=== PATIENT | male | born 1955 | race Caucasian/White ===

== ENCOUNTER 2019-11-19 00:58 | Emergency (ER) | payer MEDICARE ==
[~2019-11-19] VITALS: Ht 185.4 cm; Wt 97.5 kg
[~2019-11-19 00:58] MED LIST: CLON.1 PO; CLON1; ESCI20 PO; GABA300; HYDACE5 PO; HYDMOR2 PO; HYDPAM50; QUET100 PO; QUET25; QUET25 PO; SERT50
[2019-11-19 02:59] LABS: Alanine Aminotransfer (ALT/SGP 28 U/L (12-78); Albumin, Blood 3.7 g/dL (3.4-5.0); Albumin/Globulin Ratio 0.9 (0.8-1.8); Alk Phos 115 U/L (50-136); Anion Gap 6 mmol/L (6-16); Aspartate Aminotrans (AST/SGOT 26 U/L (12-37); Bilirubin, Total 0.2 mg/dL (0.1-1.0); Blood Urea Nitrogen 12 mg/dL (8-24); CO2, Blood 28 mmol/L (21-32); Calcium, Blood 9.4 mg/dL (8.5-10.1); Chloride, Blood 106 mmol/L (98-108); Creatinine, Blood 1.09 mg/dL (0.60-1.20); Globulin, Blood 4.2 g/dL (2.2-4.0); Glomerular Filtration Rate >60 (60-); Glucose, Blood 95 mg/dL (70-99); Potassium, Blood 4.1 mmol/L (3.5-5.5); Sodium, Blood 140 mmol/L (136-145); Total Protein, Blood 7.9 g/dL (6.4-8.2)
[2019-11-19 03:29] LABS: BASOPHILS ABSOLUTE AUTO 0.06 K/mm3 (0.00-0.23); BASOPHILS PERCENT AUTO 1 % (0-2); EOSINOPHILS ABSOLUTE AUTO 0.37 K/mm3 (0.00-0.68); EOSINOPHILS PERCENT AUTO 3 % (0-6); Hemoglobin 12.7 g/dL (13.5-17.5); IMMATURE GRAN ABSOLUTE AUTO 0.03 K/mm3 (0.00-0.10); IMMATURE GRAN PERCENT AUTO 0 % (0-1); LYMPHOCYTES PERCENT AUTO 26 % (21-46); MONOCYTES ABSOLUTE AUTO 1.12 K/mm3 (0.16-1.47); MONOCYTES PERCENT AUTO 10 % (4-13); Mean Corpuscular HGB 30.9 pg (26.0-34.0); Mean Corpuscular HGB Conc 32.6 g/dL (31.5-36.5); Mean Corpuscular Volume 95 fL (80-100); Mean Platelet Volume 9.8 fL (9.1-12.4); NEUTROPHILS ABSOLUTE AUTO 7.02 K/mm3 (1.96-9.15); NEUTROPHILS PERCENT AUTO 60 % (41-73); Platelet Count 243 K/mm3 (150-400); RDW Coefficient Variation 12.1 % (11.7-14.2); Red Blood Cell Count 4.11 M/mm3 (4.30-5.90)
[2019-11-19 03:49] LABS: Troponin I <0.015 ng/mL (0.000-0.040)
== END 2019-11-19 05:02 | disposition home or self-care (01) ==
LOC: ER 00:58
PROVIDERS: Emergency Medicine
DX: R10.11 Right upper quadrant pain (principal); Z88.8 Allergy status to other drugs, medicaments and biological substances; Z79.899 Other long term (current) drug therapy; Z87.891 Personal history of nicotine dependence
CPT/HCPCS: 80053; 83690; 83735; 84484; 85025; 93005; 93010; 99284-25

== ENCOUNTER 2019-12-06 23:34 | Inpatient (IN) | payer MEDICARE, OTHER ==
[~2019-12-06] VITALS: Ht 177.8 cm; Wt 81.0 kg
[2019-12-07 01:21] LABS: BASOPHILS ABSOLUTE AUTO 0.09 K/mm3 (0.00-0.23); BASOPHILS PERCENT AUTO 1 % (0-2); EOSINOPHILS ABSOLUTE AUTO 0.23 K/mm3 (0.00-0.68); EOSINOPHILS PERCENT AUTO 1 % (0-6); Hematocrit 43.1 % (37.0-53.0); IMMATURE GRAN ABSOLUTE AUTO 0.09 K/mm3 (0.00-0.10); IMMATURE GRAN PERCENT AUTO 1 % (0-1); LYMPHOCYTES PERCENT AUTO 13 % (21-46); MONOCYTES ABSOLUTE AUTO 1.33 K/mm3 (0.16-1.47); MONOCYTES PERCENT AUTO 7 % (4-13); Mean Corpuscular HGB 30.6 pg (26.0-34.0); Mean Corpuscular HGB Conc 32.5 g/dL (31.5-36.5); Mean Corpuscular Volume 94 fL (80-100); Mean Platelet Volume 10.1 fL (9.1-12.4); NEUTROPHILS ABSOLUTE AUTO 13.94 K/mm3 (1.96-9.15); NEUTROPHILS PERCENT AUTO 78 % (41-73); Platelet Count 266 K/mm3 (150-400); RDW Coefficient Variation 12.1 % (11.7-14.2); RDW Standard Deviation 41.7 fL (35.1-46.3); Red Blood Cell Count 4.58 M/mm3 (4.30-5.90); White Blood Cell Count 17.98 K/mm3 (4.00-11.30)
[2019-12-07 01:38] LABS: Alanine Aminotransfer (ALT/SGP 42 U/L (12-78); Albumin, Blood 3.9 g/dL (3.4-5.0); Albumin/Globulin Ratio 0.9 (0.8-1.8); Alk Phos 115 U/L (50-136); Anion Gap 4 mmol/L (6-16); Aspartate Aminotrans (AST/SGOT 53 U/L (12-37); Bilirubin, Total 0.8 mg/dL (0.1-1.0); Blood Urea Nitrogen 16 mg/dL (8-24); Bun/Creatinine Ratio 15.5 (12.0-20.0); CO2, Blood 30 mmol/L (21-32); Calcium, Blood 9.3 mg/dL (8.5-10.1); Chloride, Blood 107 mmol/L (98-108); Creatinine, Blood 1.03 mg/dL (0.60-1.20); Globulin, Blood 4.5 g/dL (2.2-4.0); Glomerular Filtration Rate >60 (60-); Glucose, Blood 122 mg/dL (70-99); Potassium, Blood 3.7 mmol/L (3.5-5.5); Sodium, Blood 141 mmol/L (136-145); Total Protein, Blood 8.4 g/dL (6.4-8.2)
[2019-12-07] MEDS ORDERED: Norco 5-325 Ta1 EACH PO (03:13)
[2019-12-07] MEDS ORDERED: ONDA4ODT MM (03:13)
[2019-12-07 06:20] LABS: CHOL/HDL RATIO 3.7; Cholesterol 175 mg/dL (50-200); HDL Cholesterol 47 mg/dL (>39); LDL/HDL RATIO 2.5; Low Density Lipoprotein Chol 118 mg/dL (0-110); Triglycerides 48 mg/dL (30-160); Very Low Density Lipoprot Chol 10 mg/dL (6-32)
[2019-12-07] MEDS ORDERED: TRAZ100 PO (13:05)
[2019-12-07] MEDS ORDERED: Ventolin/Prove6.7 GM INH (13:06)
--- NOTE | 2019-12-07 14:23 | NUR ---
DR MCGEE HERE TO SEE PT.
[2019-12-07 16:24] LABS: Source, Urine Clean Catch
[2019-12-07 16:28] LABS: Appearance, Urine Clear (Clear); Bilirubin, Urine Neg (Neg); Blood, Urine 3+ (Neg); Color, Urine Yellow (P-Yellow); Glucose Qualitative, Urine Neg (Neg); Ketones, Urine Neg (Neg); Leukocyte Esterase, Urine Neg (Neg); Nitrite, Urine Neg (Neg); Protein, Urine 1+ (Neg); Urobilinogen, Urine NORM (Normal)
[2019-12-07 16:58] LABS: Bacteria Mod /hpf; Mucus Light (0-Heavy); Squamous Epithelial Cells Rare /hpf (Few); White Blood Cells, Urine 0-2 /hpf (0-5)
--- NOTE | 2019-12-07 18:57 | NUR ---
SHIFT SUMMARY PT NEW ADMIT TODAY. PT BEEN MED PRN FOR PAIN. PT VOIDED, URINE SENT. PT BEEN NPO. PT BEEN RESTING QUIETLY MOST OF DAY SINCE GETTING TO FLOOR.
[2019-12-08 04:51] LABS: Hematocrit 38.4 % (37.0-53.0); Hemoglobin 12.2 g/dL (13.5-17.5); Mean Corpuscular HGB 30.6 pg (26.0-34.0); Mean Corpuscular HGB Conc 31.8 g/dL (31.5-36.5); Mean Corpuscular Volume 96 fL (80-100); Mean Platelet Volume 10.2 fL (9.1-12.4); Platelet Count 221 K/mm3 (150-400); RDW Coefficient Variation 12.2 % (11.7-14.2); RDW Standard Deviation 43.7 fL (35.1-46.3); Red Blood Cell Count 3.99 M/mm3 (4.30-5.90); White Blood Cell Count 16.08 K/mm3 (4.00-11.30)
--- NOTE | 2019-12-08 04:51 | NUR ---
SHIFT SUMMARY PT IS A/O X4. HE HAS BEEN RESTING MOST OF THE SHIFT, USING URINAL TO VOID. PT HAS HAD PAIN AND NAUSEA AND MEDICATED PER ORDERS. HAS BEEN NPO PER ORDERS; PROVIDED MOUTH SWABS FOR COMFORT. PT REPOSITIONS SELF IN BED. ASSISTED WITH ADL'S PRN.
[2019-12-08 05:43] LABS: Alanine Aminotransfer (ALT/SGP 26 U/L (12-78); Albumin, Blood 2.7 g/dL (3.4-5.0); Albumin/Globulin Ratio 0.8 (0.8-1.8); Alk Phos 78 U/L (50-136); Anion Gap 4 mmol/L (6-16); Aspartate Aminotrans (AST/SGOT 27 U/L (12-37); Bilirubin, Total 0.8 mg/dL (0.1-1.0); Blood Urea Nitrogen 16 mg/dL (8-24); Bun/Creatinine Ratio 17.7 (12.0-20.0); CO2, Blood 26 mmol/L (21-32); Calcium, Blood 8.3 mg/dL (8.5-10.1); Chloride, Blood 109 mmol/L (98-108); Creatinine, Blood 0.91 mg/dL (0.60-1.20); Globulin, Blood 3.5 g/dL (2.2-4.0); Glomerular Filtration Rate >60 (60-); Glucose, Blood 95 mg/dL (70-99); Potassium, Blood 3.8 mmol/L (3.5-5.5); Sodium, Blood 139 mmol/L (136-145); Total Protein, Blood 6.2 g/dL (6.4-8.2)
--- NOTE | 2019-12-08 09:22 | NUR ---
DR MCGEE HERE TO SEE PT.
--- NOTE | 2019-12-08 11:17 | NUR ---
DISCUSSED PT'S STATUS WITH DR DIANA, REPORTS MAY GIVE LOVENOX.
--- NOTE | 2019-12-08 16:52 | NUR ---
SHIFT SUMMARY PT SEEN BY DR MCGEE AND DR DIANA TODAY. PT ADVANCED TO C.L. DIET BY DR DIANA. PT BEEN ASSISTED WITH ADL'S PRN. PT VOIDING. PT BEEN MED PRN FOR PAIN, EDUCATED ON DIET, ACTIVITY. REPORTS USING I/S.
[2019-12-08] MEDS ORDERED: QUET100 PO (17:14)
[2019-12-09 05:00] LABS: BASOPHILS ABSOLUTE AUTO 0.03 K/mm3 (0.00-0.23); BASOPHILS PERCENT AUTO 0 % (0-2); EOSINOPHILS ABSOLUTE AUTO 0.26 K/mm3 (0.00-0.68); EOSINOPHILS PERCENT AUTO 2 % (0-6); Hematocrit 33.8 % (37.0-53.0); Hemoglobin 10.9 g/dL (13.5-17.5); IMMATURE GRAN ABSOLUTE AUTO 0.09 K/mm3 (0.00-0.10); IMMATURE GRAN PERCENT AUTO 1 % (0-1); LYMPHOCYTES ABSOLUTE AUTO 2.67 K/mm3 (0.84-5.20); LYMPHOCYTES PERCENT AUTO 16 % (21-46); MONOCYTES ABSOLUTE AUTO 1.53 K/mm3 (0.16-1.47); MONOCYTES PERCENT AUTO 9 % (4-13); Mean Corpuscular HGB Conc 32.2 g/dL (31.5-36.5); Mean Corpuscular Volume 96 fL (80-100); Mean Platelet Volume 10.1 fL (9.1-12.4); NEUTROPHILS ABSOLUTE AUTO 12.22 K/mm3 (1.96-9.15); NEUTROPHILS PERCENT AUTO 73 % (41-73); Platelet Count 185 K/mm3 (150-400); RDW Coefficient Variation 12.1 % (11.7-14.2); RDW Standard Deviation 42.4 fL (35.1-46.3); Red Blood Cell Count 3.52 M/mm3 (4.30-5.90)
--- NOTE | 2019-12-09 05:04 | NUR ---
SHIFT SUMMARY ACUTE PANCREATITIS. AA0X4, VSS. PT TOLERATING PO. REPORTS SOME PAIN WHEN DRINKING AND STOPS DRINKING. MEDICATED FOR PAIN PER EMAR, PT REPORTS PAIN OF 4/5 OF 10 T/O SHIFT. REPORTS TOLERABLE AFTER RECEIVING PAIN MEDICATIONS. PT VOIDING IN URINAL. PT NOT UP OUT OF BED R/T TO PAIN. TOLERATING CLEARS WELL.
[2019-12-09 05:19] LABS: Alanine Aminotransfer (ALT/SGP 17 U/L (12-78); Albumin, Blood 2.4 g/dL (3.4-5.0); Albumin/Globulin Ratio 0.7 (0.8-1.8); Alk Phos 67 U/L (50-136); Anion Gap 4 mmol/L (6-16); Aspartate Aminotrans (AST/SGOT 21 U/L (12-37); Bilirubin, Total 0.8 mg/dL (0.1-1.0); Blood Urea Nitrogen 17 mg/dL (8-24); Bun/Creatinine Ratio 18.9 (12.0-20.0); CO2, Blood 27 mmol/L (21-32); Calcium, Blood 7.8 mg/dL (8.5-10.1); Chloride, Blood 109 mmol/L (98-108); Globulin, Blood 3.4 g/dL (2.2-4.0); Glomerular Filtration Rate >60 (60-); Glucose, Blood 96 mg/dL (70-99); Magnesium, Blood 1.9 mg/dL (1.6-2.4); Potassium, Blood 3.9 mmol/L (3.5-5.5); Sodium, Blood 140 mmol/L (136-145); Total Protein, Blood 5.8 g/dL (6.4-8.2)
--- NOTE | 2019-12-09 13:16 | NUR ---
FROM OR TO PACU RECIEVED PATIENT AND REPORT FROM EZEQUIEL EVANS AND DR. RAMIREZ. DRESSINGS CLI MARY DRAIN ON RIGHT MID LINE UMBILICUS DRESSING
--- NOTE | 2019-12-09 13:47 | NUR ---
PLACED ON OXIMIZER 10 LITERS SAT IN 88-92%
--- NOTE | 2019-12-09 14:33 | NUR ---
PT RETURNED FROM PACU, STAND TRANSFER TO BED, A&OX4, VSS, 10L OXIMIZER 93%, DENIES PAIN, DENIES N&V, KIMBERLY ICE CHIPS.
--- NOTE | 2019-12-09 17:13 | NUR ---
SHIFT SUMMARY PT A&OX4, VSS, 10L OXIMIZER >93%, TCDB & I.S. EDU & ENC, PT DEMONSTRATED. S/P LAP ANABELA 3 STERI STRIPS AND 1 MARY DRAIN SITE W/330 MLS OUT. PT COUGHING/SPLINTING. KIMBERLY PO, DENIES N&V. PAIN TREATED WITH 1 PERC. VOIDING WELL; AMBULATING TO BRP W/SBA, USING URINAL IN BED; LASIX GIVEN. WILL REPORT TO ONCOMING NOC RN.
--- NOTE | 2019-12-10 04:50 | NUR ---
SHIFT SUMMARY POD 1 LAP ANABELA. AA0X4, VSS. PT REPORTS PAIN IS MORE TOLERABLE TODAY. MEDICATED PER EMAR WITH PO PAIN MEDS. PT REPORTS BEING ABLE TO SLEEP. PT TOLERATING FLUIDS WELL. DENIES NAUSEA. MARY DRAIN STILL HAVING LARGE AMOUNT OF OUTPUT, EMPTIED PRN. RED LIQUID DRAINAGE. PT VOIDING IN URINAL. TITRATED PT 02 DOWNS TO 7L VIA OXYMIZER, WILL CONTINUE TO WEAN PT TOLERATES.
[2019-12-10 05:35] LABS: BASOPHILS ABSOLUTE AUTO 0.02 K/mm3 (0.00-0.23); BASOPHILS PERCENT AUTO 0 % (0-2); EOSINOPHILS PERCENT AUTO 0 % (0-6); Hematocrit 31.9 % (37.0-53.0); Hemoglobin 10.4 g/dL (13.5-17.5); IMMATURE GRAN ABSOLUTE AUTO 0.09 K/mm3 (0.00-0.10); IMMATURE GRAN PERCENT AUTO 1 % (0-1); LYMPHOCYTES ABSOLUTE AUTO 1.42 K/mm3 (0.84-5.20); LYMPHOCYTES PERCENT AUTO 9 % (21-46); MONOCYTES ABSOLUTE AUTO 1.06 K/mm3 (0.16-1.47); MONOCYTES PERCENT AUTO 7 % (4-13); Mean Corpuscular HGB 30.7 pg (26.0-34.0); Mean Corpuscular HGB Conc 32.6 g/dL (31.5-36.5); Mean Corpuscular Volume 94 fL (80-100); Mean Platelet Volume 10.3 fL (9.1-12.4); NEUTROPHILS ABSOLUTE AUTO 13.14 K/mm3 (1.96-9.15); NEUTROPHILS PERCENT AUTO 84 % (41-73); Platelet Count 211 K/mm3 (150-400); RDW Standard Deviation 41.4 fL (35.1-46.3); Red Blood Cell Count 3.39 M/mm3 (4.30-5.90); White Blood Cell Count 15.73 K/mm3 (4.00-11.30)
[2019-12-10 05:58] LABS: Alanine Aminotransfer (ALT/SGP 33 U/L (12-78); Albumin, Blood 2.3 g/dL (3.4-5.0); Albumin/Globulin Ratio 0.6 (0.8-1.8); Alk Phos 73 U/L (50-136); Anion Gap 4 mmol/L (6-16); Aspartate Aminotrans (AST/SGOT 33 U/L (12-37); Bilirubin, Total 0.4 mg/dL (0.1-1.0); Blood Urea Nitrogen 15 mg/dL (8-24); Bun/Creatinine Ratio 16.7 (12.0-20.0); CO2, Blood 29 mmol/L (21-32); Calcium, Blood 8.1 mg/dL (8.5-10.1); Chloride, Blood 106 mmol/L (98-108); Globulin, Blood 3.7 g/dL (2.2-4.0); Glomerular Filtration Rate >60 (60-); Glucose, Blood 134 mg/dL (70-99); Potassium, Blood 3.9 mmol/L (3.5-5.5); Sodium, Blood 139 mmol/L (136-145)
--- NOTE | 2019-12-10 18:20 | NUR ---
TELEPHONE CALL TO HOSPITALIST R/T PT COUGHING UP SPUTUM AND BRIGHT RED BLOOD; SEVERAL INCIDENTS, NOT A LARGE AMOUNT OF BLOOD. NO NEW ORDERS.
--- NOTE | 2019-12-10 19:55 | NUR ---
SHIFT SUMMARY PT A&OX4, 6L OXIMIZER >91%, DECLINED PAIN MEDICATION. KIMBERLY PO, DENIES N&V. AMB W/FWW & SBA TO BRP AND HALLWAY. VOIDING WELL. COUGHING UP SMALL AMT OF RED BLOOD/HOSP CALLED/NO NEW ORDERS RECEIVED. REPORT GIVEN TO NAT FUENTES.
--- NOTE | 2019-12-10 20:43 | NUR ---
SPOKE TO HOSPITALIST [place] REGARDING PT'S SATURATION LEVELS. 10L VIA OXYMIZER SATS REMAIN 88-90%. WHEN PT GET ANXIOUS OR COUGHS HIS SATS DROP TO THE HIGH 70'S / LOW 80'S. PT IS LAYING DOWN IN BED THIS RN PERFORMING FREQUENT CHECKS TO MONITOR OXYGEN LEVELS AND LOC. NEW ORDERS RECEIVING FOR CONTINOUS PULSE OX AND A CHEST X-RAY. PLAN TO CALL HOSPITALIST BACK ONCE X RAY IS PERFORMED. WILL MONITOR PT FOR SATURATION LEVELS, LOC CHANGES, AND ANXIETY/PAIN.
--- NOTE | 2019-12-10 21:02 | NUR ---
CHEST X-RAY TO ROOM, SPOKE WITH HOSPITALIST [place] AND INFORMED HER THAT X-RAY HAD BEEN PERFORMED PER HER REQUEST.
[2019-12-10 22:10] LABS: International Normalized Ratio 1.04; Prothrombin Time Results 11.1 Sec (9.7-11.5)
--- NOTE | 2019-12-10 22:57 | NUR ---
ATIVAN GIVEN. PT BEING TAKEN DOWN TO CT. PT STILL ANXIOUS. EDUCATED PT ON BREATHING.
--- NOTE | 2019-12-10 23:36 | NUR ---
PT BACK FRM CT. TOLERATED WELL. PT REPORTS ATIVAN WAS EFFECTIVE. PT SATS AT 91% WITH 10L VIA OXYMIZER. CONT PULSE OX IN PLACE. PT RESTING IN BED. CALL LIGHT IN REACH. ABX INFUSING.
--- NOTE | 2019-12-11 00:07 | NUR ---
SPOKE WITH HOSPITALIST [place] ABOUT CT RESULTS. PLAN TO CONTINUE WITH ORDERS ABX AND MAINTAIN CURRENT OXYGEN SATURATION LEVELS. PT RESTING IN BED. CALL LIGHT IN REACH.
--- NOTE | 2019-12-11 03:41 | NUR ---
SPOKE WITH HOSPITALIST R/T PATIENTS VITALS AND CONTINUED DIFFICULT BREATHING. ORDERS GIVEN FOR RT TREAT AND EVAL. ORDERS GIVEN FOR LACTIC ACID LABS TO BE RUN WITH MORNING LABS. PT IN BED REPORTING SOME INCREASED DIFFICULTY BREATHING SATS BETWEEN 88-90% HEAD OF BED ELEVATED TO HELP WITH RESPIRATIONS.
[2019-12-11 04:16] LABS: BASOPHILS ABSOLUTE AUTO 0.05 K/mm3 (0.00-0.23); BASOPHILS PERCENT AUTO 0 % (0-2); EOSINOPHILS ABSOLUTE AUTO 0.58 K/mm3 (0.00-0.68); EOSINOPHILS PERCENT AUTO 4 % (0-6); Hematocrit 35.9 % (37.0-53.0); Hemoglobin 11.8 g/dL (13.5-17.5); IMMATURE GRAN ABSOLUTE AUTO 0.07 K/mm3 (0.00-0.10); IMMATURE GRAN PERCENT AUTO 0 % (0-1); LYMPHOCYTES ABSOLUTE AUTO 3.02 K/mm3 (0.84-5.20); LYMPHOCYTES PERCENT AUTO 19 % (21-46); MONOCYTES ABSOLUTE AUTO 1.35 K/mm3 (0.16-1.47); MONOCYTES PERCENT AUTO 8 % (4-13); Mean Corpuscular HGB Conc 32.9 g/dL (31.5-36.5); Mean Corpuscular Volume 94 fL (80-100); Mean Platelet Volume 10.2 fL (9.1-12.4); NEUTROPHILS ABSOLUTE AUTO 11.09 K/mm3 (1.96-9.15); NEUTROPHILS PERCENT AUTO 69 % (41-73); Platelet Count 219 K/mm3 (150-400); RDW Coefficient Variation 11.9 % (11.7-14.2); RDW Standard Deviation 41.1 fL (35.1-46.3); Red Blood Cell Count 3.81 M/mm3 (4.30-5.90); White Blood Cell Count 16.16 K/mm3 (4.00-11.30)
[2019-12-11 04:36] LABS: Albumin, Blood 2.4 g/dL (3.4-5.0); Anion Gap 5 mmol/L (6-16); Blood Urea Nitrogen 14 mg/dL (8-24); Bun/Creatinine Ratio 15.3 (12.0-20.0); CO2, Blood 28 mmol/L (21-32); Chloride, Blood 107 mmol/L (98-108); Creatinine, Blood 0.92 mg/dL (0.60-1.20); Glomerular Filtration Rate >60 (60-); Glucose, Blood 93 mg/dL (70-99); Phosphorus, Blood 1.7 mg/dL (2.5-4.9); Potassium, Blood 3.4 mmol/L (3.5-5.5); Sodium, Blood 140 mmol/L (136-145)
--- NOTE | 2019-12-11 05:52 | NUR ---
SHIFT SUMMARY POD 2 LAP ANABELA. MARY DRAINING RED LIQUID. PT REPORTS PAIN LOCALIZED AROUND DRAIN SITE. PAIN WHEN BREATHING DEEPLY. PT DESATTING FREQUENTLY DURING SHIFT. CT SCAN AND CHEST X RAY SHOWED PNEUMONIA. PT STARTED ON ABX TO TREAT. RT EVAL TO SEE PT. SATS SHOULD REMAIN ABOVE 88%, PT HAS REMAINED ABOVE 88% ON 7L VIA OXYMIZER. PT DESATS WITH EXERTION, INCLUDING REPOSITIONING IN BED. PT TAKES APPROX 30 SECONDS TO RECOVER. MEDICATED FOR PAIN PER EMAR. TOLERATING PO PERCOCET WELL. PT VOIDING DURING SHIFT. CALLS APPROPRIATLY.
--- NOTE | 2019-12-11 09:50 | NUR ---
NOTE PT AWAKE AND ALERT. PT COMPLAINT OF FEELING MISERABLE. TALKED ABOUT RESONABL PAIN GOALS. REVIEWED PAIN MEDICATIONS WITH PT. TALKED ABOUT HIS "HALLUCINATIONS" WITH PERCOCET. TALKED ABOUT OTHER ORAL PAIN MEDICATIONS. PT REFUSED TO CHANGE AT THIS TIME. ENCOURAGED ABD. SPLINTING WITH PILLOW AND USE OF FLUTTER VALVE. ABD. LARGE ROUND, FIRM. PT DENIES FLATUS AND FEELING BLOATED. MARY INTACT AND DRAINING SEROSANGENIOUS FLUID. PT HAS A PRODUCTIVE COUGH OF BRIGHT RED SPUTUM. SMALL IN QUANTITY. CONSULT FOR DR ABRAMS CALLED TO ANSWERING SERVICE. ASHLYN TAVERAS.
--- NOTE | 2019-12-11 14:53 | NUR ---
NOTE PT AWAKE ALERT. NEEDS ENCOURAGEMENT TO DO FOR HIMSELF. HE IS CAPABILE OF LIFTING HIS GLASS OF WATER BUT HE DOESN'T WANT TO. PT ABLE TO TURN HIMSELF. FOUND HIM SLEEPING LAYING ON HIS LEFT SIDE SAT 96% ON 8L OXIMYZER. MEDICATED WITH PERCOCET X2 FOR ABD PAIN. PT HAS DENIED "HALLUCINATIONS" SO FAR TODAY. PT HAS STATED THAT HE HAS PASSED FLATUS X2. NPO EXCEPT SIPS AND CHIPS. MARY DRAINING SEROSANGENIOUS FLUID. ABD STILL LARGE, ROUND AND FIRM. ENCOURAGED HIM TO MOVE. HE REFUSED SCD THIS MORNING. "THEY'RE HOT." LUNGS-CONTINUE TO COUGH UP BRIGHT RED SPUTUM. R/T CARE CAME TO GIVE HIM A BREATHING TREATMENT. HE WOULDN'T DEEP BREATH FOR HER. HE REFUSED THE FLUTTER VALVE. HE'S HOT THEN HE'S COLD. PT HAD A VISITOR THIS AFTERNOON. PT MENTOR. TOMORROW IS THE ANNIVERSARY OF HIS SON COMITTING SUICIDE. HE TALKS SOME ABOUT HIM. CONTINUE POT.
--- NOTE | 2019-12-11 18:29 | NUR ---
PT AWAKE AND ALERT. CONTINUES TO COUGH UP BRIGHT RED SPUTUM. DR ABRAMS HAS NOT COME TO SEE HIM. VSS. OXYGEN STABLE. FREQUENT REQUESTS FOR PAIN MEDICATIONS. PT HAS BEEN MORE RECEPTIVE TO REMINDERS TO MOVE AND TURN HIMSELF. HE STILL WON'T USE THE FLUTTER VALVE. CONTINUE POT.
[2019-12-12 05:31] LABS: BASOPHILS ABSOLUTE AUTO 0.05 K/mm3 (0.00-0.23); BASOPHILS PERCENT AUTO 0 % (0-2); EOSINOPHILS PERCENT AUTO 4 % (0-6); Hematocrit 32.4 % (37.0-53.0); Hemoglobin 10.7 g/dL (13.5-17.5); IMMATURE GRAN ABSOLUTE AUTO 0.12 K/mm3 (0.00-0.10); IMMATURE GRAN PERCENT AUTO 1 % (0-1); LYMPHOCYTES ABSOLUTE AUTO 3.51 K/mm3 (0.84-5.20); LYMPHOCYTES PERCENT AUTO 19 % (21-46); MONOCYTES ABSOLUTE AUTO 1.88 K/mm3 (0.16-1.47); MONOCYTES PERCENT AUTO 10 % (4-13); Mean Corpuscular Volume 94 fL (80-100); Mean Platelet Volume 10.2 fL (9.1-12.4); NEUTROPHILS ABSOLUTE AUTO 12.46 K/mm3 (1.96-9.15); NEUTROPHILS PERCENT AUTO 66 % (41-73); Platelet Count 259 K/mm3 (150-400); RDW Coefficient Variation 12.2 % (11.7-14.2); RDW Standard Deviation 42.4 fL (35.1-46.3); Red Blood Cell Count 3.45 M/mm3 (4.30-5.90); White Blood Cell Count 18.82 K/mm3 (4.00-11.30)
[2019-12-12 06:00] LABS: Albumin, Blood 2.3 g/dL (3.4-5.0); Anion Gap 5 mmol/L (6-16); Blood Urea Nitrogen 11 mg/dL (8-24); Bun/Creatinine Ratio 13.2 (12.0-20.0); CO2, Blood 29 mmol/L (21-32); Calcium, Blood 8.2 mg/dL (8.5-10.1); Chloride, Blood 103 mmol/L (98-108); Creatinine, Blood 0.83 mg/dL (0.60-1.20); Glomerular Filtration Rate >60 (60-); Glucose, Blood 94 mg/dL (70-99); Phosphorus, Blood 2.7 mg/dL (2.5-4.9); Potassium, Blood 3.5 mmol/L (3.5-5.5); Sodium, Blood 137 mmol/L (136-145)
--- NOTE | 2019-12-12 06:18 | NUR ---
SHIFT SUMMARY HAS RESTED WELL, GOOD INTAKE OF FLUIDS AND OUTPUT NOTED. PAIN MANAGED WITH PO PERCOCET X2 DOSES THIS SHIFT. FEVER AT START OF HIFT HAS NOT RETURNED. HAS BEEN COUGHING PRODUCTIVELY, REITERATED NEED TO T/C/DB AND USE FLUTTER VALVE. HAS BEEN COOPERATIVE AND COMPLIANT WITH INSTRUCTIONS AND TEACHING. DENIES FURTHER NEEDS OR WANTS AT THIS TIME. SAFETY MEASURES IN PLACE. WILL GIVE HAND OFF TO ONCOMING SHIFT USING SBAR DURING BEDSIDE REPORT.
--- NOTE | 2019-12-12 10:59 | NUR ---
DR DIANA HERE RECENTLY TO SEE PT, REPORTS WILL ADVANCE TO F.L. DIET. DR WHITT HERE NOW TO SEE PT.
--- NOTE | 2019-12-12 12:00 | NUR ---
DR HORNE HERE TO SEE PT.
--- NOTE | 2019-12-12 14:41 | NUR ---
PT AGREED TO ALLOW SRN TO ASSIST WITH CARE ON 12/12/19 FOR 12/13/19
--- NOTE | 2019-12-12 15:44 | NUR ---
DR HORNE HERE RECENTLY TO SEE PT.
--- NOTE | 2019-12-12 16:27 | NUR ---
RT HERE TO SEE PT, REPORTS ABLE TO DECREASE O2 NEEDS. CONT BIOX IN PLACE.
--- NOTE | 2019-12-12 16:47 | NUR ---
FAMILY HERE VISITING WITH PT.
--- NOTE | 2019-12-12 16:55 | NUR ---
SHIFT SUMMARY PT DIET ADVANCED TODAY. PT ABLE TO HAVE JELLO WITHOUT DIFFICULTY. PT BEEN ASSISTED WITH ADL'S PRN. RT BEEN TO SEE PT INES TIMES TODAY, SEE OTHER NOTE. INES NAIR TO SEE PT TODAY. FAMILY IN TO SEE PT THIS AFTERNOON/EVENING.
--- NOTE | 2019-12-12 21:54 | NUR ---
VIEW SCORE PT HAS VIEW SCORE OF 5. DENIES "FEELING ANY DIFFERENT THAN NORMAL." DENIES INCREASE IN SOB, CHEST PAIN, OR DYSPNEA. RECHECK OF TEMP IS NOW 100.7. PT C/O PAIN. MEDICATED PER EMAR, ICE PACK PLACED TO BACK OF NECK - PER PT PREF. PT A/OX4 AND IS CURRENTLY RESTING IN BED W/CALL LIGHT IN REACH. WILL CONT TO MONITOR AND RECHECK VITALS AND PAIN.
--- NOTE | 2019-12-13 05:43 | NUR ---
SHIFT SUMMARY PT MEDICATED X1 FOR ANXIETY, WHICH SEEMED TO IMPROVE HR AND RR. FREQUENT FLUTTER VALVE AND I.S. USE APPEARS TO HAVE IMPROVED WORK OF BREATHING. PT STATES HE FEELS BETTER THIS MORNING. RT IN T/O SHIFT TO MONITOR RESP/HIGH FLOW, RATE CHANGED TO 55L/MIN WITH FIO2 AT 56. PAIN MANAGED PER EMAR WITH PO MEDS. TOLERATING ADVANCED DIET, DENIES N/V. MARY IN PLACE WITH DRESSING C/D/I, DRAINING SS. PT CURRENTLY APPEARS TO BE SLEEPING IN BED WITH CALL LIGHT IN REACH. WILL CONT TO MONITOR AND GIVE REPORT TO ONCOMING RN.
[2019-12-13 07:17] LABS: BASOPHILS ABSOLUTE AUTO 0.05 K/mm3 (0.00-0.23); BASOPHILS PERCENT AUTO 0 % (0-2); EOSINOPHILS PERCENT AUTO 5 % (0-6); Hematocrit 30.4 % (37.0-53.0); Hemoglobin 10.1 g/dL (13.5-17.5); IMMATURE GRAN PERCENT AUTO 1 % (0-1); LYMPHOCYTES ABSOLUTE AUTO 2.53 K/mm3 (0.84-5.20); LYMPHOCYTES PERCENT AUTO 16 % (21-46); MONOCYTES ABSOLUTE AUTO 1.54 K/mm3 (0.16-1.47); MONOCYTES PERCENT AUTO 10 % (4-13); Mean Corpuscular HGB 31.1 pg (26.0-34.0); Mean Corpuscular HGB Conc 33.2 g/dL (31.5-36.5); Mean Corpuscular Volume 94 fL (80-100); Mean Platelet Volume 10.8 fL (9.1-12.4); NEUTROPHILS ABSOLUTE AUTO 10.85 K/mm3 (1.96-9.15); NEUTROPHILS PERCENT AUTO 68 % (41-73); Platelet Count 275 K/mm3 (150-400); RDW Coefficient Variation 12.6 % (11.7-14.2); RDW Standard Deviation 43.4 fL (35.1-46.3); Red Blood Cell Count 3.25 M/mm3 (4.30-5.90); White Blood Cell Count 15.97 K/mm3 (4.00-11.30)
[2019-12-13 07:34] LABS: Alanine Aminotransfer (ALT/SGP 45 U/L (12-78); Albumin, Blood 2.2 g/dL (3.4-5.0); Albumin/Globulin Ratio 0.6 (0.8-1.8); Alk Phos 112 U/L (50-136); Anion Gap 5 mmol/L (6-16); Aspartate Aminotrans (AST/SGOT 40 U/L (12-37); Bilirubin, Total 0.9 mg/dL (0.1-1.0); Blood Urea Nitrogen 14 mg/dL (8-24); Bun/Creatinine Ratio 14.2 (12.0-20.0); CO2, Blood 31 mmol/L (21-32); Calcium, Blood 8.3 mg/dL (8.5-10.1); Chloride, Blood 101 mmol/L (98-108); Creatinine, Blood 0.99 mg/dL (0.60-1.20); Globulin, Blood 3.9 g/dL (2.2-4.0); Glomerular Filtration Rate >60 (60-); Glucose, Blood 114 mg/dL (70-99); Magnesium, Blood 2.1 mg/dL (1.6-2.4); Phosphorus, Blood 2.3 mg/dL (2.5-4.9); Potassium, Blood 3.3 mmol/L (3.5-5.5); Sodium, Blood 137 mmol/L (136-145); Total Protein, Blood 6.1 g/dL (6.4-8.2)
--- NOTE | 2019-12-13 11:27 | NUR ---
DR HORNE BEEN TO SEE PT. DR DIANA HERE TO SEE PT.
[2019-12-13 13:09] LABS: ANTI-DSDNA ANTIBODIES 2 IU/mL (0-9); ANTI-JO-1 <0.2 AI (0.0-0.9); ANTISCLERODERMA-70 ANTIBODIES <0.2 AI (0.0-0.9); RNP ANTIBODIES <0.2 AI (0.0-0.9); SJOGREN'S ANTI-SS-A <0.2 AI (0.0-0.9); SJOGREN'S ANTI-SS-B <0.2 AI (0.0-0.9)
--- NOTE | 2019-12-13 16:47 | NUR ---
SHIFT SUMMARY PT EATING AND DRINKING, VOIDING. PT BEEN ASSISTED WITH ADL'S PRN. PT WORKED WITH THERAPY. PT BEEN REPOSITIONING SELF IN BED. BUSHRAT TO SEE PT, SEE ORDERS. PT BEEN MED ORDERED. RT BEEN ASSISTING WITH PT. PT CONT TO BE ON CONT BIOX. PT USING [employer] LIGHT APPR.
--- NOTE | 2019-12-14 03:33 | NUR ---
SHIFT SUMMARY NO ACUTE CHANGES THIS SHIFT. PT A/OX4 WITH VSS. ON HIGH FLOW 55L/MIN W/ FI02 AT 57%, SPO2 AT 93. CONT BIOX IN PLACE. MEDICATED ONCE FOR PAIN WITH PO. MARY PATENT AND DRAINING SS, ABD DRESSING 3X C/D/I. PT APPEARS TO HAVE SLEPT WELL T/O SHIFT. IVF AND ABX ADMINISTERED PER ORDERS. PT CURRENTLY RESTING IN BED WITH CALL LIGHT IN REACH. WILL CONT TO MONITOR AND GIVE REPORT TO ONCOMING RN.
[2019-12-14 05:45] LABS: BASOPHILS ABSOLUTE AUTO 0.05 K/mm3 (0.00-0.23); BASOPHILS PERCENT AUTO 0 % (0-2); EOSINOPHILS ABSOLUTE AUTO 0.96 K/mm3 (0.00-0.68); EOSINOPHILS PERCENT AUTO 6 % (0-6); Hematocrit 30.5 % (37.0-53.0); Hemoglobin 10.1 g/dL (13.5-17.5); IMMATURE GRAN ABSOLUTE AUTO 0.31 K/mm3 (0.00-0.10); IMMATURE GRAN PERCENT AUTO 2 % (0-1); LYMPHOCYTES ABSOLUTE AUTO 2.54 K/mm3 (0.84-5.20); LYMPHOCYTES PERCENT AUTO 16 % (21-46); MONOCYTES ABSOLUTE AUTO 1.52 K/mm3 (0.16-1.47); MONOCYTES PERCENT AUTO 9 % (4-13); Mean Corpuscular HGB 31.1 pg (26.0-34.0); Mean Corpuscular HGB Conc 33.1 g/dL (31.5-36.5); Mean Corpuscular Volume 94 fL (80-100); Mean Platelet Volume 10.7 fL (9.1-12.4); NEUTROPHILS ABSOLUTE AUTO 11.06 K/mm3 (1.96-9.15); NEUTROPHILS PERCENT AUTO 67 % (41-73); Platelet Count 309 K/mm3 (150-400); RDW Coefficient Variation 12.7 % (11.7-14.2); RDW Standard Deviation 43.6 fL (35.1-46.3); Red Blood Cell Count 3.25 M/mm3 (4.30-5.90); White Blood Cell Count 16.44 K/mm3 (4.00-11.30)
[2019-12-14 06:03] LABS: Alanine Aminotransfer (ALT/SGP 45 U/L (12-78); Albumin, Blood 2.3 g/dL (3.4-5.0); Albumin/Globulin Ratio 0.6 (0.8-1.8); Alk Phos 120 U/L (50-136); Anion Gap 5 mmol/L (6-16); Aspartate Aminotrans (AST/SGOT 41 U/L (12-37); Bilirubin, Total 0.9 mg/dL (0.1-1.0); Blood Urea Nitrogen 14 mg/dL (8-24); Bun/Creatinine Ratio 16.4 (12.0-20.0); CO2, Blood 31 mmol/L (21-32); Calcium, Blood 8.4 mg/dL (8.5-10.1); Chloride, Blood 100 mmol/L (98-108); Creatinine, Blood 0.85 mg/dL (0.60-1.20); Globulin, Blood 4.1 g/dL (2.2-4.0); Glomerular Filtration Rate >60 (60-); Glucose, Blood 102 mg/dL (70-99); Phosphorus, Blood 2.2 mg/dL (2.5-4.9); Potassium, Blood 3.5 mmol/L (3.5-5.5); Sodium, Blood 136 mmol/L (136-145); Total Protein, Blood 6.4 g/dL (6.4-8.2)
--- NOTE | 2019-12-14 08:20 | NUR ---
PT STATED HE HAS LG AMT SPUTUM UP WITH STREAKS OF BLOOD AND HAS COUGHING SPELLS ANY TIME HE MOVES AND BURNING IN HIS LUNGS AFTER THE COUGHING WITH SOB WITH ANY MOVEMENT IN THE BED PT STATED HIS ABD PAIN IS MIN MARY HAS CL YELLOW DRAINAGE
--- NOTE | 2019-12-14 12:39 | NUR ---
PT HAVING NAUSEA ZOFRAN GIVEN PT ALSO HAS TEMP 100,2
--- NOTE | 2019-12-14 16:49 | NUR ---
PO TYLENOL GIVEN FOR FEVER CALLED DR WHITT FOR ORDER PT PO PAIN MEDS SWITCHED TO OXY
[2019-12-14 19:09] LABS: CCP ANTIBODIES IGG/IGA 17 units (0-19)
--- NOTE | 2019-12-15 02:10 | NUR ---
SPOKE TO DR. CAPONE R/T INCREASED OXYGEN NEEDS. PT HAS MAXED OUT AIRVO WITH RT AND IS SITTING BETWEEN 88-92% AND AN INCREASE IN ANXIETY R/T SATURATIONS. RT AND THIS NURSE REQUESTED A TRANSFER TO HIGHER LEVEL OF CARE FOR CLOSER MONITORING AND POSSIBLE FOR ADVANCED RESPIRATORY EQUIPMENT NEEDS. PT STILL ORIENTED WITH RAPID BREATHS, CURRENTLY LAYING IN BED. CALLING APPROPRIATLY. AWAITING ROOM ASSIGNMENT AND WILL TRANSFER TO PCU. WILL CALL AND GIVE REPORT TO RECEIVING NURSE.
--- NOTE | 2019-12-15 02:34 | NUR ---
REPORT GIVEN TO MENDY FUENTES IN PCU. AWAITING RT TO ASSIST WITH TRANSFER WITH PATIENTS OXYGEN DEMANDS. PT CURRENTLY MAXED OUT ON AIRVO RESTING IN BED WITH HOB ELEVATED. PT TAKING SHORT SHALLOW BREATHS. SITTING AT 92% AND 115 HR. CONTINOUS PULSE OX IS ON.
--- NOTE | 2019-12-15 02:58 | NUR ---
PT TRANSFERRED FROM SURG VIA BED; PT A&O; VSS; TELE MONITOR PLACED SINUS TACH W/ HR 108 NOTED; O2 SATS >93 ON AIRVO 60L / FIO2 80%; DIM LUNG SOUNDS; TEMP OF 100 NOTED; PT STATES TEMPERATURE DIFFERENCES AND COUGHING CAUSE DESATURATION AND TAKES SIGNIFICANT TIME TO RECOVER; WARM BLANKET OFFERED PT DENIED; COLD WATER BROUGHT TO PT; DENIES OTHER NEEDS AT THIS TIME; CALL LIGHT IN REACH; BED IN LOWEST POSITION; WILL CONTINUE TO MONITOR CLOSELY
[2019-12-15 03:46] LABS: BASOPHILS ABSOLUTE AUTO 0.07 K/mm3 (0.00-0.23); BASOPHILS PERCENT AUTO 0 % (0-2); EOSINOPHILS ABSOLUTE AUTO 1.04 K/mm3 (0.00-0.68); EOSINOPHILS PERCENT AUTO 6 % (0-6); Hematocrit 33.7 % (37.0-53.0); Hemoglobin 10.8 g/dL (13.5-17.5); IMMATURE GRAN ABSOLUTE AUTO 0.36 K/mm3 (0.00-0.10); IMMATURE GRAN PERCENT AUTO 2 % (0-1); LYMPHOCYTES ABSOLUTE AUTO 2.02 K/mm3 (0.84-5.20); LYMPHOCYTES PERCENT AUTO 12 % (21-46); MONOCYTES ABSOLUTE AUTO 1.53 K/mm3 (0.16-1.47); MONOCYTES PERCENT AUTO 9 % (4-13); Mean Corpuscular HGB 30.3 pg (26.0-34.0); Mean Corpuscular Volume 95 fL (80-100); Mean Platelet Volume 10.7 fL (9.1-12.4); NEUTROPHILS ABSOLUTE AUTO 12.54 K/mm3 (1.96-9.15); NEUTROPHILS PERCENT AUTO 71 % (41-73); Platelet Count 372 K/mm3 (150-400); RDW Coefficient Variation 12.8 % (11.7-14.2); RDW Standard Deviation 44.5 fL (35.1-46.3); Red Blood Cell Count 3.56 M/mm3 (4.30-5.90); White Blood Cell Count 17.56 K/mm3 (4.00-11.30)
--- NOTE | 2019-12-15 04:05 | NUR ---
UPDATE DR.DIAZ NETTLES NOTIFIED THAT PT WAS TRANSFERED AND HAS INCREASED AIRVO DEMANDS; NEW ORDER FOR METHYLPREDNISONE X1 GIVEN; MEDICATION ADMINISTERED WELL TYLENOL FOR FEVER
[2019-12-15 04:07] LABS: Anion Gap 4 mmol/L (6-16); Blood Urea Nitrogen 16 mg/dL (8-24); Bun/Creatinine Ratio 14.4 (12.0-20.0); CO2, Blood 31 mmol/L (21-32); Calcium, Blood 8.9 mg/dL (8.5-10.1); Chloride, Blood 97 mmol/L (98-108); Creatinine, Blood 1.11 mg/dL (0.60-1.20); Glomerular Filtration Rate >60 (60-); Glucose, Blood 106 mg/dL (70-99); Potassium, Blood 3.9 mmol/L (3.5-5.5); Sodium, Blood 132 mmol/L (136-145)
--- NOTE | 2019-12-15 06:39 | NUR ---
SHIFT SUMMARY PT A&O; NEEDY; CALLS FREQUENTLY; DENIES CHEST PAIN; VSS; TEMPERATURE DOWN TO 99 W/ TYLENOL ADMINISTRATION; USES URINAL IN BED; O2 SATS >94 ON AIRVO; FIO2 60L / 80%; NO ACUTE DISTRESS NOTED; CALL LIGHT IN REACH; BED IN LOWEST POSITION; MONITOR CLOSELY UNTIL HAND OFF TO DAY SHIFT RN.
[2019-12-15 13:35] LABS: Adenovirus Not Detected (NOT DETECT); Bordetella pertussis Not Detected (NOT DETECT); Chlamydophila pneumoniae Not Detected (NOT DETECT); Coronavirus 229E Not Detected (NOT DETECT); Coronavirus HKU1 Not Detected (NOT DETECT); Coronavirus NL63 Not Detected (NOT DETECT); Coronavirus OC43 Not Detected (NOT DETECT); Human Metapneumovirus Not Detected (NOT DETECT); Human Rhinovirus/Enterovirus Not Detected (NOT DETECT); Influenza A/2009-H1 Not Detected (NOT DETECT); Influenza A/H1 Not Detected (NOT DETECT); Influenza A/H3 Not Detected (NOT DETECT); Influenza B Not Detected (NOT DETECT); Mycoplasma pneumoniae Not Detected (NOT DETECT); Parainfluenza Virus 1 Not Detected (NOT DETECT); Parainfluenza Virus 2 Not Detected (NOT DETECT); Parainfluenza Virus 3 Not Detected (NOT DETECT); Parainfluenza Virus 4 Not Detected (NOT DETECT); Respiratory Syncytial Virus Not Detected (NOT DETECT)
[2019-12-15 15:10] LABS: ANA DIRECT Negative (Negative); ANTIMYELOPEROXIDASE (MPO) ABS <9.0 U/mL (0.0-9.0); ANTIPROTEINASE 3 (PR-3) ABS <3.5 U/mL (0.0-3.5); ATYPICAL PANCA <1:20 titer (Neg:<1:20); CYTOPLASMIC (C-ANCA) <1:20 titer (Neg:<1:20); PERINUCLEAR (P-ANCA) <1:20 titer (Neg:<1:20)
[2019-12-15 15:41] LABS: Test Name COVID-19
--- NOTE | 2019-12-15 17:04 | NUR ---
SHIFT SUMMARY... PT WENT TO CT TO R/O POSSIBLE PE. SMALL PE WAS FOUND PER PULMONOLGY PROVIDER, PT WAS PLACED INTO AIRBORN ISOLATION TO R/O COVID19 AND SAMPLE WAS SENT TO THE LAB. PT WAS UPDATED ABOUT THESE NEW CHANGES. PT'S VS HAVE BEEN STABLE T/O SHIFT. PT HAS BEEN VERY ANXIOUS AND EMOTIONAL T/O THE DAY, PT IS VERY SENSITIVE TO ANY SMALL AMOUNT OF PAIN OR DISCOMFORT. PT BEGAN TO CRY AFTER NARES SWAB WAS DONE. PT WAS WILLING TO WORK WITH PT/OT AND SAT ON THE SIDE OF THE BED WITHOUT HELP. PT'S O2 SATS DROPPED WITH MINIMAL ACTIVITY BUT PT RECOVERED FARILY WELL. PT IS STILL ON THE AIRVO AT 50L AND 60%FIO2. CALL LIGHT IN REACH WILL CONTINUE TO MONITOR UNTIL REPORT IS GIVEN TO ONCOMING RN.
[2019-12-16 04:00] LABS: BASOPHILS ABSOLUTE AUTO 0.09 K/mm3 (0.00-0.23); BASOPHILS PERCENT AUTO 0 % (0-2); EOSINOPHILS ABSOLUTE AUTO 0.17 K/mm3 (0.00-0.68); EOSINOPHILS PERCENT AUTO 1 % (0-6); Hematocrit 29.8 % (37.0-53.0); Hemoglobin 9.7 g/dL (13.5-17.5); IMMATURE GRAN ABSOLUTE AUTO 0.46 K/mm3 (0.00-0.10); IMMATURE GRAN PERCENT AUTO 2 % (0-1); LYMPHOCYTES ABSOLUTE AUTO 2.48 K/mm3 (0.84-5.20); LYMPHOCYTES PERCENT AUTO 9 % (21-46); MONOCYTES ABSOLUTE AUTO 1.87 K/mm3 (0.16-1.47); MONOCYTES PERCENT AUTO 6 % (4-13); Mean Corpuscular HGB 30.5 pg (26.0-34.0); Mean Corpuscular HGB Conc 32.6 g/dL (31.5-36.5); Mean Corpuscular Volume 94 fL (80-100); Mean Platelet Volume 10.7 fL (9.1-12.4); NEUTROPHILS ABSOLUTE AUTO 24.01 K/mm3 (1.96-9.15); NEUTROPHILS PERCENT AUTO 83 % (41-73); Platelet Count 372 K/mm3 (150-400); RDW Coefficient Variation 12.7 % (11.7-14.2); RDW Standard Deviation 43.8 fL (35.1-46.3); Red Blood Cell Count 3.18 M/mm3 (4.30-5.90); White Blood Cell Count 29.08 K/mm3 (4.00-11.30)
[2019-12-16 04:25] LABS: Anion Gap 8 mmol/L (6-16); Blood Urea Nitrogen 23 mg/dL (8-24); Bun/Creatinine Ratio 25.4 (12.0-20.0); CO2, Blood 27 mmol/L (21-32); Calcium, Blood 8.8 mg/dL (8.5-10.1); Chloride, Blood 101 mmol/L (98-108); Creatinine, Blood 0.91 mg/dL (0.60-1.20); Glomerular Filtration Rate >60 (60-); Glucose, Blood 140 mg/dL (70-99); Potassium, Blood 4.3 mmol/L (3.5-5.5); Sodium, Blood 136 mmol/L (136-145)
--- NOTE | 2019-12-16 06:53 | NUR ---
PT A&O; COMPLIANT W/ CARE; APPEARS ANXIOUS; ASKS NUMEROUS QUESTIONS REGARDING CARE; NO FEVER NOTED THIS SHIFT; C/O NOT BEING ABLE TO SLEEP; PATTI GIVEN FOR PAIN 1X; C/O 5 OF 10 PAIN IN ABDOMEN W/COUGH; PT REPORTED NO PAIN AFTER 1HR OF ADMINISTERING PAIN MED; NON-PRODUCTIVE COUGH NOTED; O2 SATS >93 ON AIRVO 70%FIO2; DENIES CHEST PAIN; VSS; USES URINAL IN BED; CURRENTLY SLEEPING; NO SIGNS OF DISTRESS; CALL LIGHT IN REACH; BED IN LOWEST POSITION; WILL CONTINUE TO MONITOR UNTIL HAND OFF TO DAY SHIFT RN
--- NOTE | 2019-12-16 08:57 | NUR ---
AM NOTE... ASSUMED CARE OF PT APROX 0700, PT IS A&Ox4. PT IS S/P LAP SALOEY DONE ON 12/08. PT IS WORKING WITH PT/OT AT THIS TIME AND WAS ABLE TO STAND AT THE SIDE OF THE BED WITHOUT ANY HELP. PT'S VS STABLE, PT IS STILL ON AIRVO AT 50L AND APROX 60%FIO2. PT WILL DESAT QUICKLY WITH COUGHING, HOLDING HIS BREATH OR MOVMENT BUT RECOVERS FARILY WELL. L/S CLEAR IN THE UPPER LOBES AND CRACKLES ARE HEARD IN THE BASES. BT PRESENT AND HYPOACTIVE, ABD SLIGHTLY FIRM AND TENDER TO PALP. PT HAS NOT HAD BM SINCE 12/05, PROVIDER IS AWARE PT IS GETTING BOWEL CARE. CALL LIGHT IN REACH WILL CONTINUE TO MONITOR.
--- NOTE | 2019-12-16 14:48 | NUR ---
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 Patient agreed. Patient briefly told me about his concerns and that he is shaken to the core. Because of poor connectivity our call was repeatedly dropped. But I am able to recite inspiring Bible verses and provide prayer. Patient responded well and displayed evidence of an elevated mood. I will continue to remain available to patient and family.
--- NOTE | 2019-12-16 18:28 | NUR ---
SHIFT SUMMARY... NO ACUTE NEGATIVE CHANGES NOTED THIS SHIFT. PT'S VS HAVE BEEN STABLE. PT HAS BEEN ON THE AIRVO AT 50L HI FLOW AND 60-70%FIO2. PT DESATS QUICKLY WITH ACTIVITY BUT IS ABLE TO RECOVER WITH PURSED LIP BREATHING. PT HAS BEEN EMOTIONAL THIS SHIFT ABOUT HIS CURRENT CONDITION AND MEDICAL ISSUES. PT WORKED WITH PT/OT TODAY WELL. NO RESULTS ON THE COVID-19 TEST YET. PT HAS BEEN MEDICATED FOR PAINx3 THIS SHIFT PER EMAR. CALL LIGHT IN REACH WILL CONTINUE TO MONITOR UNTIL REPORT IS GIVEN TO ONCOMING RN.
--- NOTE | 2019-12-16 19:45 | NUR ---
ASSUMED CARE: RECEIVED REPORT FROM GINA KEARNS. ASSUMED CARE OF PT. IN NO ACUTE DISTRESS AT THIS TIME. DENIES ANY NEEDS. CALL LIGHT AND POSSESSIONS IN REACH, WILL CONTINUE TO MONITOR.
[2019-12-16 22:25] LABS: Vancomycin, Trough 16.7 ug/mL (5.0-10.0)
--- NOTE | 2019-12-16 23:27 | NUR ---
SPOKE TO DR. PERDOMO REGARDING PT'S INCREASING ANXIETY. ORDERS RECEIVED.
--- NOTE | 2019-12-17 01:40 | NUR ---
SPOKE TO DR. MAGANA REGARDING PT'S REFUSAL TO USE BIPAP, AND NEED FOR PRN MEDICATION FOR HIS ANXIETY/PANIC ATTACKS. ORDERS RECEIVED.
--- NOTE | 2019-12-17 02:45 | NUR ---
UPDATE: PT STATING, "I'M FEELING CLAUSTROPHOBIC. THIS ATIVAN ISN'T WORKING." DR. MAGANA ON THE UNIT, THIS RN SPOKE TO HER REGARDING PT STATEMENTS. IN TO SEE PT. PT RESPONDED WELL TO CONVERSATION, APPEARED TO HELP CALM HIM. NO NEW ORDERS RECEIVED AT THIS TIME.
[2019-12-17 04:55] LABS: BASOPHILS ABSOLUTE AUTO 0.08 K/mm3 (0.00-0.23); BASOPHILS PERCENT AUTO 0 % (0-2); EOSINOPHILS ABSOLUTE AUTO 1.23 K/mm3 (0.00-0.68); EOSINOPHILS PERCENT AUTO 5 % (0-6); Hematocrit 31.6 % (37.0-53.0); Hemoglobin 10.2 g/dL (13.5-17.5); IMMATURE GRAN ABSOLUTE AUTO 0.48 K/mm3 (0.00-0.10); IMMATURE GRAN PERCENT AUTO 2 % (0-1); LYMPHOCYTES ABSOLUTE AUTO 2.76 K/mm3 (0.84-5.20); LYMPHOCYTES PERCENT AUTO 11 % (21-46); MONOCYTES ABSOLUTE AUTO 1.38 K/mm3 (0.16-1.47); MONOCYTES PERCENT AUTO 5 % (4-13); Mean Corpuscular HGB Conc 32.3 g/dL (31.5-36.5); Mean Corpuscular Volume 93 fL (80-100); NEUTROPHILS ABSOLUTE AUTO 19.82 K/mm3 (1.96-9.15); NEUTROPHILS PERCENT AUTO 77 % (41-73); Platelet Count 443 K/mm3 (150-400); RDW Coefficient Variation 12.9 % (11.7-14.2); RDW Standard Deviation 44.2 fL (35.1-46.3); White Blood Cell Count 25.75 K/mm3 (4.00-11.30)
[2019-12-17 05:06] LABS: PCO2 Arterial 37.8 mmHg (35-45); PO2 Arterial 68.2 mmHg (80-100); pH Blood Arterial 7.49 (7.35-7.45)
[2019-12-17 05:17] LABS: Anion Gap 6 mmol/L (6-16); Blood Urea Nitrogen 19 mg/dL (8-24); Bun/Creatinine Ratio 21.1 (12.0-20.0); CO2, Blood 28 mmol/L (21-32); Chloride, Blood 102 mmol/L (98-108); Glomerular Filtration Rate >60 (60-); Glucose, Blood 99 mg/dL (70-99); Sodium, Blood 136 mmol/L (136-145)
--- NOTE | 2019-12-17 06:13 | NUR ---
SHIFT SUMMARY: PT RESTING COMFORTABLY AT THIS TIME, NO S/S ACUTE DISTRESS NOTED. WAS MONITORED EVERY 1-2 HOURS WITH NEEDS MET. THIS RN TO SPEAK TO HOSPITALIST REGARDING PT'S CONTINUED ANXIETY AND REQUEST FOR ATIVAN, STATING "IT LET ME SLEEP FOR 2 HOURS." HAD BMX3 THIS SHIFT, REQUESTING ASSISTANCE TO USE THE BEDPAN FREQUENTLY, STATING HE DOESN'T WANT STAFF TO LEAVE THE ROOM, WANTING TO LEAVE THE DOOR OPEN, REPORTS HX PTSD WITH ISOLATION PPE. O2 NEEDS INCREASING, 60-74% O2 ON AIRVO. REPORTS INCREASED DYSPNEA. COVID-19 LAB RESULTS REMAIN PENDING AT THIS TIME. CALL LIGHT IN REACH, BED IN LOW POSITION.
--- NOTE | 2019-12-17 08:49 | NUR ---
AM NOTE.... ASSUMED CARE OF PT APROX 0700. PT IS A&Ox4, VERY ANXIOUS, EMOTIONAL AND TEARFUL AT TIMES. PT'S VS STABLE PT IS ON AIRVO AT 50L AND 70%FIO2 WITH SATS >91%. L/S CLEAR IN THE UPPER/MID LOBES DIM ON THE RLL FINE CRACKLES HEARD IN THE LLL, THIS IS IMPROVED FROM YESTERDAY. BT PRESENT AND HYPERACTIVE, ABD MILDLY DISTENDED, STERISTRIPS NOTED TO SMALL/LAP CHOLEY SITES, SLIGHTLY TENDER TO PALP. PT HAS HAD MULITPLE LOOSE BMS THIS AM, BOWEL CARE HAS BEEN HELD TODAY. PT HAS BEEN VERY ANXIOUS AND EMOTIONAL ABOUT CURRENT HEALTH STATE, THERAPUTIC COMMUNICATION/LISTENING PROIVDED TO THE PT THIS AM. PALLIATIVE CARE CONSULT WAS PLACED. CALL LIGHT IN REACH WILL CONTINUE TO MONITOR.
--- NOTE | 2019-12-17 10:12 | NUR ---
PT UPDATE... LAB CALLED THIS RN, PT HAS BEEN FOUND NEGATIVE FOR COVID-19, PT WAS TAKEN OUT OF ISOLATION.
--- NOTE | 2019-12-17 18:33 | NUR ---
SHIFT SUMMARY... NO ACCUTE NEGATIVE CHANGES NOTED THIS SHIFT. PT HAS BEEN CLEARED FOR THE COVID-19 VIRUS. PT'S VS HAVE BEEN STABLE T/O SHIFT. PT WORKED WITH PT/OT AND WAS ABLE TO GET UP TO THE RECLINER CHAIR. PT'S O2 SAT DID NOT DROP BELOW 88% WHEN WORKING WITH PT/OT THIS AFTERNOON. PT HAS BEEN MEDICATED FOR ANXIETY PER EMAR THIS SHIFT WHICH HAS HELPED THE PT'S ANXIETY ATTACKS GREATLY. CALL LIGHT IN REACH WILL CONTINUE TO MONITOR UNTIL REPORT IS GIVEN TO ONCOMING RN.
--- NOTE | 2019-12-17 19:30 | NUR ---
ASSUMED CARE RECEIVED REPORT FROM GINA KEARNS. ASSUMED CARE OF PT. RESTING COMFORTABLY AT THIS TIME, NO S/S ACUTE DISTRESS NOTED. DENIES ANY NEEDS AT THIS TIME. CALL LIGHT AND POSSESSIONS IN REACH, WILL CONTINUE TO MONITOR.
--- NOTE | 2019-12-18 00:30 | NUR ---
SPOKE TO JACINTA BERNARDO REGARDING PT'S REQUEST FOR HIGHER DOSE OF ATIVAN. REPORTS LOWER DOSE "ONLY LETS HIM SLEEP FOR 2 HOURS." ORDERS RECEIVED FOR ONE TIME DOSE.
[2019-12-18 04:43] LABS: BASOPHILS ABSOLUTE AUTO 0.08 K/mm3 (0.00-0.23); BASOPHILS PERCENT AUTO 0 % (0-2); EOSINOPHILS ABSOLUTE AUTO 1.23 K/mm3 (0.00-0.68); EOSINOPHILS PERCENT AUTO 6 % (0-6); Hematocrit 29.4 % (37.0-53.0); Hemoglobin 9.6 g/dL (13.5-17.5); IMMATURE GRAN ABSOLUTE AUTO 0.64 K/mm3 (0.00-0.10); IMMATURE GRAN PERCENT AUTO 3 % (0-1); LYMPHOCYTES ABSOLUTE AUTO 2.85 K/mm3 (0.84-5.20); LYMPHOCYTES PERCENT AUTO 13 % (21-46); MONOCYTES ABSOLUTE AUTO 1.25 K/mm3 (0.16-1.47); MONOCYTES PERCENT AUTO 6 % (4-13); Mean Corpuscular HGB 30.9 pg (26.0-34.0); Mean Corpuscular HGB Conc 32.7 g/dL (31.5-36.5); Mean Corpuscular Volume 95 fL (80-100); NEUTROPHILS ABSOLUTE AUTO 16.34 K/mm3 (1.96-9.15); NEUTROPHILS PERCENT AUTO 73 % (41-73); Platelet Count 468 K/mm3 (150-400); RDW Standard Deviation 44.9 fL (35.1-46.3); Red Blood Cell Count 3.11 M/mm3 (4.30-5.90); White Blood Cell Count 22.39 K/mm3 (4.00-11.30)
[2019-12-18 05:01] LABS: Anion Gap 5 mmol/L (6-16); Blood Urea Nitrogen 17 mg/dL (8-24); Bun/Creatinine Ratio 17.6 (12.0-20.0); CO2, Blood 30 mmol/L (21-32); Calcium, Blood 8.4 mg/dL (8.5-10.1); Chloride, Blood 101 mmol/L (98-108); Creatinine, Blood 0.97 mg/dL (0.60-1.20); Glomerular Filtration Rate >60 (60-); Glucose, Blood 101 mg/dL (70-99); Sodium, Blood 136 mmol/L (136-145)
--- NOTE | 2019-12-18 07:42 | NUR ---
SHIFT SUMMARY: PT SLEPT IN RECLINER T/O NIGHT, APPEARED COMFORTABLE. O2 CONTINUES TO DE-SAT WITH ACTIVITY, IMPROVING WITH REST. AIRVO FIO2 75%, 45L O2 AT THIS TIME. ANXIETY MANAGED WITH MEDICATIONS ORDERED; EFFECTIVE, ALLOWING PT TO REST PEACEFULLY. VS STABLE. NO OTHER ACUTE EVENTS NOTED T/O NIGHT, REMAINS ASLEEP AT THIS TIME. CALL LIGHT IN REACH, POSSESSIONS IN REACH. REPORT GIVEN TO ONCOMING RN.
--- NOTE | 2019-12-18 19:20 | NUR ---
ASSUMED CARE RECEIVED REPORT FROM GINA GROSSMAN. ASSUMED CARE OF PT. SLEEPING IN RECLINER AT THIS TIME, NO S/S ACUTE DISTRESS NOTED. O2 SATS STABLE AT THIS TIME ON AIRVO FIO2 75%. CALL LIGHT AND POSSESSIONS IN REACH. WILL CONTINUE TO MONITOR.
--- NOTE | 2019-12-18 23:08 | NUR ---
UPDATE BIOX ALARMING, PT HAVING COUGHING FIT, O2 SATS DE-SATTING TO 70'S-80'S. TITRATED AIRVO FIO2 TO 92-94%, PLACED PT ON NON-REBREATHER MASK ON 15L O2. O2 SATS INCREASING TO 90-92%. SOB IMPROVING. WILL CONTINUE TO MONITOR.
--- NOTE | 2019-12-19 01:20 | NUR ---
BI-OX ALARM SOUNDING, O2 SATS 88%. RN IN ROOM TITRATING AIRVO FIO2 UP FROM 68% TO 82%. APPLIED NON-REBREATHER MASK ON 12L O2. PT WORE X5 MINUTES PRIOR TO REMOVING MASK, STATING "IT'S BLOWING TOO MUCH AIR, I DON'T WANT THIS ON MY FACE." THIS RN REMINDED PT OF NEED TO MAINTAIN O2 SATS >92%, INCREASED FIO2 TO 84%. O2 SATS STABILIZING, DECREASED FIO2 TO 68%. O2 SATS 94-96% AT THIS TIME. DENIES FURTHER SOB AT THIS TIME. WILL CONTINUE TO MONITOR.
--- NOTE | 2019-12-19 05:54 | NUR ---
SHIFT SUMMARY PT RESTING COMFORTABLY IN CHAIR AT THIS TIME, NO S/S ACUTE DISTRESS NOTED, AIRVO AT 77% FIO2 AT THIS TIME, O2 SATS STABLE AT 95-96%. CONTINUES TO COUGH OCCASIONALLY, DE-SATTING WITH EPISODES. NO C/O CP, PRESSURE. POWERGLIDE TO KT INFUSING/FLUSHING WELL, NOT DRAWING AT THIS TIME. PT CALLED APPROPRIATELY WITH NEEDS. DENIES NEEDS AT THIS TIME. CALL LIGHT AND POSSESSIONS IN REACH, WILL CONTINUE TO MONITOR UNTIL REPORT GIVEN TO ONCOMING RN.
[2019-12-19 06:09] LABS: BASOPHILS PERCENT AUTO 1 % (0-2); EOSINOPHILS ABSOLUTE AUTO 1.21 K/mm3 (0.00-0.68); EOSINOPHILS PERCENT AUTO 6 % (0-6); Hematocrit 30.7 % (37.0-53.0); Hemoglobin 9.9 g/dL (13.5-17.5); IMMATURE GRAN ABSOLUTE AUTO 0.54 K/mm3 (0.00-0.10); IMMATURE GRAN PERCENT AUTO 3 % (0-1); LYMPHOCYTES ABSOLUTE AUTO 2.45 K/mm3 (0.84-5.20); LYMPHOCYTES PERCENT AUTO 12 % (21-46); MONOCYTES ABSOLUTE AUTO 0.91 K/mm3 (0.16-1.47); MONOCYTES PERCENT AUTO 4 % (4-13); Mean Corpuscular HGB 30.3 pg (26.0-34.0); Mean Corpuscular HGB Conc 32.2 g/dL (31.5-36.5); Mean Corpuscular Volume 94 fL (80-100); Mean Platelet Volume 10.6 fL (9.1-12.4); NEUTROPHILS ABSOLUTE AUTO 15.62 K/mm3 (1.96-9.15); NEUTROPHILS PERCENT AUTO 75 % (41-73); Platelet Count 536 K/mm3 (150-400); RDW Coefficient Variation 12.6 % (11.7-14.2); RDW Standard Deviation 43.8 fL (35.1-46.3); Red Blood Cell Count 3.27 M/mm3 (4.30-5.90); White Blood Cell Count 20.83 K/mm3 (4.00-11.30)
[2019-12-19 06:23] LABS: Anion Gap 5 mmol/L (6-16); Blood Urea Nitrogen 15 mg/dL (8-24); Bun/Creatinine Ratio 18.2 (12.0-20.0); CO2, Blood 30 mmol/L (21-32); Calcium, Blood 8.6 mg/dL (8.5-10.1); Chloride, Blood 102 mmol/L (98-108); Creatinine, Blood 0.82 mg/dL (0.60-1.20); Glomerular Filtration Rate >60 (60-); Glucose, Blood 97 mg/dL (70-99); Potassium, Blood 3.7 mmol/L (3.5-5.5); Sodium, Blood 137 mmol/L (136-145)
--- NOTE | 2019-12-19 12:44 | NUR ---
NOTE PT UP IN RECLINER. SR. VSS. CONTINUING TO REQUIER AIRVO SUPPORT. PT TOLERATING PHYSICAL THERAPY WELL. NEEDING ENCOURAGEMENT TO DO FOR HIMSELF. PT REQUESTED SUPERVISOR AUDIT CLERKS TO DISCUSS CODE STATUS. SUPERVISOR AUDIT CLERKS TIM CALLED. CONTINUE POT.
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
--- NOTE | 2019-12-20 05:32 | NUR ---
SHIFT SUMMARY PT LEEPING IN ROOM COMFORTABLY AT THIS TIME. NO ACUTE CHANGES IN STATUS T/O NIGHT. PT HAS SLEPT ON AND OFF, REQUESTING ATIVAN FOR ANXIETY AND RESTLESSNESS. PT WAS MEDICATED X3 DURING NIGHT. PT DNEIED ANY PAIN, OR CP. RESP OCCASIONALLY TACHY AND SHALLOW RTE BETWEEN 18-24 ON AIRVO AT 50L, PT WAS TITRATED FROM 65% FiO2 TO 73%FiO2 AND IS SATTING ATR 94% AT THIS TIME. PT HAS TKO NS INFUING IN POWERGLIDE IV AT THIS TIME, W/ IV ABX BID. PT DERNIES OTHER NEEDS AT THIS TIME. CALL LIGHT IS WITHIN REACH.
[2019-12-20 10:46] LABS: BASOPHILS ABSOLUTE AUTO 0.09 K/mm3 (0.00-0.23); BASOPHILS PERCENT AUTO 1 % (0-2); EOSINOPHILS ABSOLUTE AUTO 1.12 K/mm3 (0.00-0.68); EOSINOPHILS PERCENT AUTO 6 % (0-6); Hematocrit 29.6 % (37.0-53.0); Hemoglobin 9.4 g/dL (13.5-17.5); IMMATURE GRAN ABSOLUTE AUTO 0.39 K/mm3 (0.00-0.10); IMMATURE GRAN PERCENT AUTO 2 % (0-1); LYMPHOCYTES ABSOLUTE AUTO 1.72 K/mm3 (0.84-5.20); LYMPHOCYTES PERCENT AUTO 9 % (21-46); MONOCYTES PERCENT AUTO 6 % (4-13); Mean Corpuscular HGB 30.1 pg (26.0-34.0); Mean Corpuscular HGB Conc 31.8 g/dL (31.5-36.5); Mean Corpuscular Volume 95 fL (80-100); Mean Platelet Volume 9.8 fL (9.1-12.4); NEUTROPHILS ABSOLUTE AUTO 14.55 K/mm3 (1.96-9.15); NEUTROPHILS PERCENT AUTO 76 % (41-73); Platelet Count 619 K/mm3 (150-400); RDW Coefficient Variation 12.6 % (11.7-14.2); RDW Standard Deviation 43.9 fL (35.1-46.3); Red Blood Cell Count 3.12 M/mm3 (4.30-5.90); White Blood Cell Count 19.07 K/mm3 (4.00-11.30)
[2019-12-20 11:02] LABS: Vancomycin, Trough 16.8 ug/mL (5.0-10.0)
--- NOTE | 2019-12-20 16:23 | NUR ---
Spiritual care visit conducted. Patient tells me about his struggle to find care in the hospital that is not cold and sterile and how when that care comes it feels like an oasis in the desert. Patient tells me of some encounters in our hospital that bring him to tears because of staff that looked beyond the task and the numbers and really saw him. PAtient talks of hope that is restored and confidence that is gained in the human contact. Patient also speaks of his family, his disease process and his emotional/spiritual ups and downs connected to his physical status. I listen empathically, hear his cry for connection in the struggle, give time and care, and provide pastoral career development counselor and prayer. Patient responds well and displays evidence of increased hope for spiritual/emaotional/ physical improvement. I will continue to remain available to patient and family.
--- NOTE | 2019-12-20 17:54 | NUR ---
SHIFT SUMMARY PT A&Ox4; ANXIOUS BUT COOPERATIVE WITH CARE. PT TEARFUL AT TIMES. PT REPORTS SOB AT REST; TACHYPNIC; PT >90% ON AIRVO AT 50L O2 WITH 71% FIO2; BREATHING TREATMENTS PER RT. PT AT REST PT SPO2 95-97%, WITH ACTIVITY OR SPEECH PT DESATURATES TO 91-94%. PT STATES HE FEELS LIKE HE IS BREATHING BETTER AND REQUESTS TO SLEEP UP IN CHAIR TONIGHT. PT REPORTS JAW PAIN, PT STATES HE NOTIFIED DR WELSH; MEDICATED x2 WITH OXYCODONE WITH POSITIVE RESULTS. RIGHT FOREARM HAS RED STREAK AND SWELLING NOTED, NOTIFIED DR WELSH WITH NO NEW ORDERS. PT DENIES NASUEA AND DIZZINESS. PT RECEIVING IV ANTIBIOTICS. VSS. NO OTHER ACUTE CHANGES NOTED DURING SHIFT. WILL CONTINUE TO MONITOR UNITL REPORT GIVEN TO ONCOMING RN.
--- NOTE | 2019-12-21 06:21 | NUR ---
SHIFT SUMMARY PT A&O; AT BEDSIDE AT START OF SHIFT; SPUTUM ORDERED; PT ANXIOUS AND HAS EPISODES OF ANXIETY AND FEAR OF BEING UNABLE TO BREATHE; O2 SATS >93 ON AIRVO 50L 70%FIO2; DURING EPISODES SATS REMAIN ABOVE 86%; PT DOES NOT DO THINGS FOR HIMSELF; ASKS STAFF TO HAND HIM TISSUES AND REMOVE SOCKS AND SUCH; SLEPT IN CHAIR REMAINDER OF NIGHT; VSS; DENIES CHEST PAIN; C/O HEADACHE TYLENOL GIVEN PER EMAR; WASHCLOTH BROUGHT TO PT FOR FOREHEAD; PT HAD SMALL BM THIS AM; STOOD AND PIVOT TO BSC; PT CURRENTLY RESTING IN CHAIR AND IS CALM; CALL LIGHT IN REACH; BED IN LOWEST POSITION; WILL CONTINUE TO MONITOR CLOSELY UNTIL HAND OFF TO DAY SHIFT RN.
--- NOTE | 2019-12-21 07:39 | NUR ---
ASSUMPTION OF CARE PT A&O; UP IN RECLINER. PT HAS AIRVO IN PLACE AT 55L WITH FIO2 77%; BREATHING EVEN BUT LABORED; TACHYPNIC. PT REPORTS FEELING SOB AT REST. PT APPEARS ANXIOUS. VSS. WILL CONTINUE TO MONITOR.
--- NOTE | 2019-12-21 17:48 | NUR ---
SHIFT SUMMARY PT A&Ox4; COOPERATIVE WITH CARE. PT APPEARS TO BE ANXIOUS T/O SHIFT; MEDICATED x2 WITH ATIVAN; PT REQUESTS SECOND DOSE DECREASED; NOTIFIED DR CAPONE, NEW ORDERS ENTERED. PT SOB AT REST; TACHYPNIC; SPO2 >93% ON AIRVO 55L O2 AND FIO2 77 TO 70% THIS EVENING. PT HAD EPISODES AT REST, WHEN COUGHING, OF DESATURATION, EDUCATED PT ON BREATHING, FLUTTER VALVE AND INCENTIVE SPIROMETER; PT USING FLUTTER AND IS ON MULTIPLE OCCASIONS. PT UP WITH PT 1 PERSON ASSIST WALKING IN ROOM WITH NO DESATURATIONS. PT DENIES PAIN, CHEST PAIN/PRESSURE AND NASUEA T/O SHIFT. PT RECEIVING IV ANTIBIOTICS. VSS. NO OTHER ACUTE CHANGES NOTED DURING SHIFT. WILL CONTINUE TO MONITOR UNITL REPORT GIVEN TO ONCOMING RN.
--- NOTE | 2019-12-21 20:14 | NUR ---
WHEN DISCUSSING HS MEDICATIONS, PT STATED THAT HE FELT THE INCREASED DOSE OF BUSPAR THAT HE TOOK THIS MORNING CAUSED HIM TO FEEL MORE ANXIOUS AND SHORT OF BREATH. EDUCATION PROVIDED ABOUT BUSPAR AND IT EFFICACY. PT CONVICED THAT ANXIETY IS R/T BUSPAR, NOT HIS RESPIRATORY STATUS. PT STRONGLY REQUESTING TO GO BACK TO PRIOR DOSE OF BUSPAR. BANJO REPAIR PERSON DOCTOR CALLED, ORDER OBTAINED.
[2019-12-22 04:47] LABS: BASOPHILS ABSOLUTE AUTO 0.09 K/mm3 (0.00-0.23); BASOPHILS PERCENT AUTO 1 % (0-2); EOSINOPHILS ABSOLUTE AUTO 1.63 K/mm3 (0.00-0.68); EOSINOPHILS PERCENT AUTO 11 % (0-6); Hematocrit 27.1 % (37.0-53.0); Hemoglobin 8.7 g/dL (13.5-17.5); IMMATURE GRAN ABSOLUTE AUTO 0.29 K/mm3 (0.00-0.10); IMMATURE GRAN PERCENT AUTO 2 % (0-1); LYMPHOCYTES ABSOLUTE AUTO 1.58 K/mm3 (0.84-5.20); LYMPHOCYTES PERCENT AUTO 10 % (21-46); MONOCYTES ABSOLUTE AUTO 1.23 K/mm3 (0.16-1.47); MONOCYTES PERCENT AUTO 8 % (4-13); Mean Corpuscular HGB 30.5 pg (26.0-34.0); Mean Corpuscular HGB Conc 32.1 g/dL (31.5-36.5); Mean Corpuscular Volume 95 fL (80-100); Mean Platelet Volume 9.8 fL (9.1-12.4); NEUTROPHILS PERCENT AUTO 68 % (41-73); Platelet Count 590 K/mm3 (150-400); RDW Coefficient Variation 12.6 % (11.7-14.2); RDW Standard Deviation 44.1 fL (35.1-46.3); Red Blood Cell Count 2.85 M/mm3 (4.30-5.90); White Blood Cell Count 15.22 K/mm3 (4.00-11.30)
--- NOTE | 2019-12-22 06:16 | NUR ---
SHIFT SUMMARY: ED HAS RESTED INTERMITTENTLY THIS SHIFT. HE CONTINUES TO DISPLAY ANXIOUS BEHAVIORS; ASKING REPETETIVE QUESTIONS, DISPLAYING INCREASED RESPIRATORY RATE WHEN STAFF ARE IN THE ROOM, AND ASKING FOR "CALMING TALKS" WITH STAFF. HE HAS STATED SEVERAL TIMES "I HOPE MY HEALTH IMPROVES". EDUCATION GIVEN ON RELAXATION TECHNIQUES AND RESPIRATORY CARE. AIRVO AT 55 FiO2 at 70% MAINTAINING SATURATIONS ABOVE 93%. HE IS TOLERATING WATER, JELLO AND ICE CHIPS WELL. HE IS ABLE TO MAKE HIS NEEDS KNOWN. POWERGLIDE TO JACKSON COLEMAN, ABLE TO DRAW MORNING LABS. VSS, NO ACUTE CHANGES THIS SHIFT. WILL REPORT TO DAY SHIFT RN.
--- NOTE | 2019-12-22 14:18 | NUR ---
Spiritual care visit conducted. Patient is admittedly discouraged by the slowness of pace of recovery and patient tells me about the terror he feels as his mind goes over and over a drowning type of suffocation as his lungs fail. We talk about what the medical field can do to help the air hunger and about what he can do now to redirect those kinds of thoughts. Patient also talks about his concerns about facing God after life on this planet. So we discuss what patient's steve would tell him about peace with God and heaven and then patient announces that he has some sins to confess. I hear confession and then provide prayer for forgiveness and yazidism back to God. Patient responds well and shows signs of catharsis. I will continue to remain available to patient and family.
--- NOTE | 2019-12-22 18:07 | NUR ---
SHIFT NOTE PT HAS BEEN ALERT AND ORIENTED SITTING UP IN BEDSIDE CHAIR T/O SHIFT. PT WITH ANXIETY T/O THE DAY, PT HAS BEEN REQUESTING ATIVAN WHEN NOT AVAILABLE, PT DOES NOT TAKE ATIVAN AT HOME.P PT WAS CALLING FAMILYFRIENDS AND ASKING THEM TO TAKE HIS CHILDREN HE BELIEVES THAT HE "WON'T MAKE IT OUT OF HERE". PT IS THOROUGHLY EDUCATED DURING THIS SHIFT ABOUT HIS LABS AND IMAGING. PT HAS CONSULT PLACED FOR PSYCH TOMORROW WHICH HE IS AGREEABLE
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
--- NOTE | 2019-12-22 20:30 | NUR ---
SHIFT ASSESSMENT PT IS ALERT IN ROOM SITTING UP IN CHAIR. HIS IA HIS AIRVO IN PLACE AND SEEMS TO BE COMFORTABLE. UPON TALKING WITH PT IT IS VERY CLEAR THAT HE IS ANXIOUS ABOUT HIS CARE. HE EVEN BEGAN TEARING UP WHEN TALKING WITH THIS NURSE ABOUT FEELING LIKE HE DOESN'T WANT TO BE ALONE TONIGHT. THIS RN REASSURED HIM THE BEST SHE COULD. WILL CON'T TO FREQUENTLY CHECK ON PT AND ANSWER CALL LIGHTS TIMELY. VITALS ARE STABLE WHILE HIS IS UP IN CHAIR. HE WILL BE SLEEPING IN CHAIR TONIGHT R/T HE FEELS LIKE HE CAN BREATHE BETTER. SEE RT NOTES REGARING HIS SETTINGS ON HIS AIRVO. PT IS ABLE TO USE CHIAR TO ELEVATE LEGS NEEDED IN CHAIR. CALL LIGHT AND CELL PHONE ARE IN PT'S LAP. PT HAS A PATENT IV WITH ANTIBIOTICS RUNNING ORDERED. WILL CON'T TO HELP KEEP PT CALM T/O SHIFT.
--- NOTE | 2019-12-23 06:03 | NUR ---
SHIFT SUMMARY PT CON'T TO BE STABLE T/O SHIFT. HE DID HAVE PERIODS OF ANXIETY T/O SHIFT THAT CAUSED HIM TO BE SOB. HE CON'T TO BE TEARFUL WHENEVER HE TALKS ABOUT HIS HEALTH. HE CON'T TO STATE HE WILL NOT MAKE IT OUT OF THE HOSPITAL. THIS NURSE DID COMFORT HIM AND TALK WITH HIM T/O THESE TIMES. PT WAS ALSO GIVEN ATIVAN T/O SHIFT ORDERED AND THIS SEEMED TO BE THE MOST HELPFUL FOR HIM. VITALS CON'T TO BE STABLE. SEE RT NOTES REGARDING AIRVO SETTINGS. PT WAS UP IN CHAIR ALL NIGHT AND USED URINAL AND CALL LIGHT APPROPRIATLEY. WILL CON'T TO MONITOR AND KEEP PT SAFE T/O REMAINDER OF SHIFT TILL REPORT TO ONCOMING RN.
[2019-12-23 10:29] LABS: Creatinine, Blood 0.78 mg/dL (0.60-1.20); Vancomycin, Trough 17.1 ug/mL (5.0-10.0)
--- NOTE | 2019-12-23 13:48 | NUR ---
Spiritual care visit conducted. Patient shares about his absolute fear of and dying. We talk about techniques to help with fear from a biblical perspective (including praise, prayer, and saying God's promises). Patient voices appreciation. I then provide prayer for patient and he is very engaged in the prayer and again verbalizes gratitude. Patient shows signs of reduced fear at least for the moment. I will continue to remain available to patient and family.
--- NOTE | 2019-12-23 18:17 | NUR ---
SHIFTNOTE PT WITH NO ACUTE CHANGES IN HIS BREATHING DURING THIS SHIFT, PT REMAINS ON AIRVO, WITH FREQUENT BREATHING TREATMENTS T/O THE DAY. PT'S BIGGEST COMPLAINT IS OF ANXIETY. DR SALGUERO WAS IN TO SEE PT TODAY AND D/C ATIVAN WHICH DID CAUSE PT INCREASE IN ANXIETY R/T D/C OF ATIVAN AND CHANGING TO TRAZADONE. PT WAS MEDICATED WITH TRAZADONE STS THAT HE WAS NOT SURE IF HE HAD LESS ANXIETY WITH TRAZADONE. DR SALGUERO IS UPDATED AND NEW DOSING PARAMETERS WERE ESTABLISHED FOR TRAZADONE DOSING AND TIMES. PT HAD HIS FLOOR SPACE ALLOCATOR AND SPIRITUAL CARE COME AND "WRITE MY LAST WILL AND TESTIMENT".
--- NOTE | 2019-12-23 19:20 | NUR ---
PER TELEPHONE ORDER FROM DR SALGUERO PT IS ABLE TO RECIEVE PRN TRAZADONE DOSES REGUARDLESS OF HS DOSE TIME.
[2019-12-24 04:24] LABS: BASOPHILS ABSOLUTE AUTO 0.03 K/mm3 (0.00-0.23); BASOPHILS PERCENT AUTO 0 % (0-2); EOSINOPHILS ABSOLUTE AUTO 0.01 K/mm3 (0.00-0.68); EOSINOPHILS PERCENT AUTO 0 % (0-6); Hematocrit 28.1 % (37.0-53.0); Hemoglobin 8.9 g/dL (13.5-17.5); IMMATURE GRAN ABSOLUTE AUTO 0.19 K/mm3 (0.00-0.10); IMMATURE GRAN PERCENT AUTO 1 % (0-1); LYMPHOCYTES ABSOLUTE AUTO 1.67 K/mm3 (0.84-5.20); LYMPHOCYTES PERCENT AUTO 9 % (21-46); MONOCYTES ABSOLUTE AUTO 0.44 K/mm3 (0.16-1.47); MONOCYTES PERCENT AUTO 2 % (4-13); Mean Corpuscular HGB 30.3 pg (26.0-34.0); Mean Corpuscular HGB Conc 31.7 g/dL (31.5-36.5); Mean Corpuscular Volume 96 fL (80-100); Mean Platelet Volume 10.1 fL (9.1-12.4); NEUTROPHILS ABSOLUTE AUTO 16.47 K/mm3 (1.96-9.15); NEUTROPHILS PERCENT AUTO 88 % (41-73); Platelet Count 650 K/mm3 (150-400); RDW Coefficient Variation 12.4 % (11.7-14.2); RDW Standard Deviation 43.4 fL (35.1-46.3); Red Blood Cell Count 2.94 M/mm3 (4.30-5.90); White Blood Cell Count 18.81 K/mm3 (4.00-11.30)
[2019-12-24 04:39] LABS: Anion Gap 2 mmol/L (6-16); Blood Urea Nitrogen 18 mg/dL (8-24); Bun/Creatinine Ratio 20.6 (12.0-20.0); CO2, Blood 31 mmol/L (21-32); Calcium, Blood 8.8 mg/dL (8.5-10.1); Chloride, Blood 105 mmol/L (98-108); Creatinine, Blood 0.87 mg/dL (0.60-1.20); Glomerular Filtration Rate >60 (60-); Glucose, Blood 174 mg/dL (70-99); Potassium, Blood 4.4 mmol/L (3.5-5.5); Sodium, Blood 138 mmol/L (136-145)
--- NOTE | 2019-12-24 07:36 | NUR ---
END OF SHIFT PT PRESENTS VERY VERY ANXIOUS, THIS RN AND OTHER STAFF MEMBERS HAVE SPENT A MAJORITY OF THE SHIFT IN THIS ROOM TO CALM AND REASSURE PT. BOUNDARIES ARE SET AND PT DOES RESPOND WELL TO THIS HOWEVER, DUE TO PT'S RESP STATUS, ANXIETY CONTROL IS HELPFUL IN MAINTAINING SATS >88%. PT REMAINS ON 60L AIRVO AND HAS TITRATED BACK AND FORTH BETWEEN 65% TO 75% FIO2. PT VERY EXERTIONALLY DYSPNEIC. AT TIMES PT DESATS TO <80%, PT BECOMES ANXIOUS AND EXACERBATES THIS DESATS. WITH REASSURANCE, PT DOES SLOWLY RECOVER. PT STARTED ON TRAZODONE THIS SHIFT, THIS APPEARS TO HAVE HELPED LESSEN ANXIETY. LUNGS COARSE. PT RECEIVING OFTEN RT TREATMENTS. PT HAS BEEN IN RECLINING CHAIR FOR MAJORITY OF SHIFT TO AID WITH BREATHING AND COMFORT. PT VERY NICE AND COOPERATIVE WITH STAFF DESPITE ANXIETY AND IS VERY ATTUNED TO CARE NEEDS.
--- NOTE | 2019-12-24 18:58 | NUR ---
PCU SHIFT SUMMARY PATIENT ALERT AND ORIENTED X4 T/O SHIFT. PATIENT REMAINS VERY ANXIOUS T/O SHIFT - HIS ANXIETY HAS CAUSED PATIENT TO BE UNCOOPERATIVE WITH CARE AND REGRESSION OF DISEASE PROCESS. HAD THERAPUTIC COMMUNICATION WITH PATIENT T/O SHIFT- GIVING EDUCATION ON ANXIETY, GOALS AND MANAGING HIS HYPERVENTILATION WHILE ANXIOUS. PATIENT REMAINS IN SINUS TACH 110-120 T/O SHIFT. FIO2 ON AIRVO TITRATED DOWN FROM 75% TO 50%. PATIENT HAD BOWEL MOVEMENT THIS SHIFT. STRONG STEADY GAIT. ENCOURAGED PATIETN TO BE MOTIVATED TO PROVIDE SELF CARE AND MOBILITY. REPORTED TO NOC SHIFT RN GUILLAUME.
--- NOTE | 2019-12-25 05:31 | NUR ---
END OF SHIFT PT HAS USED THE CALL LIGHT NOTBLY LESS THIS SHIFT AND HAS PRESENTED LESS ANXIOUS THAN LAST SHIFT. HAS TOLERATED THE TITRATION TO 50L AND 50% ON AIRVO WELL WITH LITTLE EPISODES OF DESATURAION. PT HAS BEEN RESTING IN RECLNING CHAIR T/O THE NIGHT. HAS STILL PRESENTED VERY ANXIOUS BUT HAS NEEDED LESS REASSURANCE THIS SHIFT. PT IS VERY WARY OF TRAZODONE AND BELIEVES TRAZODONE CAUSES HIM TO EXPERIENCE SOB, OT EDUCATED ON THE EFFECTS AND REACTIONS OF TRAZODONE BUT PT CONTINUES TO BE VERY RELUCTANT TO TAKE THIS MEDICATION. PT ONSUMED 2100 DOSE BUT HAS NOT ALLOWED FOR ANY PRN DOSES. WILL CONTINUE TO MONITOR UNTIL SHIFT CHANGE.
--- NOTE | 2019-12-25 07:30 | NUR ---
ASSUMED CARE PATIENT ALERT AND ORIENTED TO SELF, LOCATION, TIME/DATE AND SITUATION. PATIENT ANXIOUS WHEN DISCUSSED WITH HIM TO PROVIDE SELF CARE PATIENT LEANING BACK IN RECLINER CHAIR WTIH LEGS UP RECLINED. PATIENT ENCOURAGED AND EDUCATED ON SITTING UP AT A 90 DEGREE ANGLE IN CHAIR WHILE EATING TO PREVENT ASPIRATIONS AND PROMOTE BREATHING WHILE EATING AND TORSO STRENGTH - PATIENT REFUSED TO DO SO. VSS. PATIENT REMAINS ON AIRVO WITH 50% FIO2 AND 50 LPM FLOW. PATIENT CONTINUES TO BECOME ANXIOUS AND HYPERVENTILATES WHILE ANXIOUS. CALL LIGHT W/I REACH; WILL CONTINUE TO MONTIOR AND MOTIVATE PATIENT TO PROVIDE SELF CARE.
--- NOTE | 2019-12-25 18:40 | NUR ---
PCU DAYSHIFT SUMMARY PATIENT REMAINS ALERT AND ORIENTED X4. PATIENT REMAINS SELF LIMITING WITH HIS CARE DUE TO ANXIETY AND BEHAVIOR. PATIENT ENCOURAGED TO USE CALM SLOW DEEP BREATHING TECHNIQUES - PATIENT THEN BECOMES FRUSTRATED. PATIENT REMAINED SINUS TACH T/O SHIFT IN THE 110'S. PATIENT REMAINED ON THE AIRVO WITH 50 LPM FLOW AND FIO2 TITRATED DOWN TO 45%. PATIENT CONTINUES TO IMPROVED THROUGH DECREASING OXYGEN REQUIREMENTS TO MAINTAIN SATURATION AT 88% OR GREATER. WILL CONTINUE TO MONITOR AND REPORT TO NOC SHIFT RN.
[2019-12-26 05:20] LABS: BASOPHILS ABSOLUTE AUTO 0.03 K/mm3 (0.00-0.23); BASOPHILS PERCENT AUTO 0 % (0-2); EOSINOPHILS ABSOLUTE AUTO 0.01 K/mm3 (0.00-0.68); EOSINOPHILS PERCENT AUTO 0 % (0-6); Hemoglobin 9.2 g/dL (13.5-17.5); IMMATURE GRAN ABSOLUTE AUTO 0.37 K/mm3 (0.00-0.10); IMMATURE GRAN PERCENT AUTO 2 % (0-1); LYMPHOCYTES ABSOLUTE AUTO 2.57 K/mm3 (0.84-5.20); LYMPHOCYTES PERCENT AUTO 12 % (21-46); MONOCYTES ABSOLUTE AUTO 1.47 K/mm3 (0.16-1.47); MONOCYTES PERCENT AUTO 7 % (4-13); Mean Corpuscular HGB 30.1 pg (26.0-34.0); Mean Corpuscular HGB Conc 31.7 g/dL (31.5-36.5); Mean Corpuscular Volume 95 fL (80-100); Mean Platelet Volume 9.8 fL (9.1-12.4); NEUTROPHILS ABSOLUTE AUTO 17.43 K/mm3 (1.96-9.15); NEUTROPHILS PERCENT AUTO 80 % (41-73); Platelet Count 660 K/mm3 (150-400); RDW Coefficient Variation 12.7 % (11.7-14.2); RDW Standard Deviation 43.9 fL (35.1-46.3); Red Blood Cell Count 3.06 M/mm3 (4.30-5.90); White Blood Cell Count 21.88 K/mm3 (4.00-11.30)
[2019-12-26 05:37] LABS: Anion Gap 6 mmol/L (6-16); Blood Urea Nitrogen 25 mg/dL (8-24); Bun/Creatinine Ratio 29.3 (12.0-20.0); CO2, Blood 30 mmol/L (21-32); Calcium, Blood 8.3 mg/dL (8.5-10.1); Chloride, Blood 104 mmol/L (98-108); Creatinine, Blood 0.85 mg/dL (0.60-1.20); Glomerular Filtration Rate >60 (60-); Glucose, Blood 121 mg/dL (70-99); Potassium, Blood 4.3 mmol/L (3.5-5.5); Sodium, Blood 140 mmol/L (136-145)
--- NOTE | 2019-12-26 05:55 | NUR ---
END OF SHIFT SUMMARY NO ACUTE CHANGES THIS SHIFT.VSS. REMAINS ON AIRVO 50LPM AND 5-54%FIO2. PT HAS PRESENTED WITH LESS ANXIETY ATTACKS/DESATURATIONS. PT CONTINUES WITH THE ANXIETY, NITPICKINESS REGARDING CARE, AND GENERAL SKEPTICISM OF SOME ASPECTS OF CARE. PT NOT WANTING TRAZODONE AND INSTEAD IS ASKING FOR ROXANOL FOR SOB. THIS APPEARS TO BE ELPFUL TO PT. LUNGS SOUND CLEAR TO AUSCULTATION WITH SOME WEEZING. PT HAS BEEN IN RECLINER THIS SHIFT. WILL CONTINUE TO MONITOR UNTIL SHIFT CHANGE.
--- NOTE | 2019-12-26 15:45 | NUR ---
Spiritual care visit conducted. Patient continues to struggle with being able to move forward emotionally. Patient talks about wanting to have relief from the panic of air-hunger and about wanting to be placed on comfort care. I ask patient what his prognosis is and if he has been given a prognosis of 6 months or less. Patient tells me that he doesn't know. Patient does not see his current state or anything close to it to be a quality of life he finds acceptable. We talk about his fears, his personal thoughts and his frustrations. I listen empathically and provide a calming presence. I will continue to remain available to patient and family.
--- NOTE | 2019-12-26 15:51 | NUR ---
Care Team Conference prior to Pt visit with Dr Tomlinson, Dr Kulkarni, Bedside RN Rema, and Iap Displays Analyst Yuri. Discussed case and plan of care. Pt has been presenting with significant anxiety and is focused on his demise. Pt has been self limiting when comlying with PT recommendations. Medications discussed. Pt is resting in recliner chair upon arrival. Pt denies pain at this time. Pt engages in discussion regarding his care if he reaches a point of end stage. Pt states he would like to be sedated and focus on comfort. Gently educated Pt that [facility] does not have a palliative sedation policy but conversation regarding comfort medications can be discussed at time of reaching end stage. Pt discusses wishes of receiving Roxanol prior to PT working with him to help with his air hunger and anxiety. Pt states this will allow him to work with PT. No other concerns reported at this time. Palliative Care will remain available for therapeutic visits.
--- NOTE | 2019-12-26 17:31 | NUR ---
NOTE PT UP IN CHAIR ALL DAY. SR/ST. PT ABLE TO TRANSFER SELF TO BS. PT DID NOT DESAT MAINTAINED 93%. NO ELEVATION IN HR NOTED WITH ACTIVITY. DR MORALES ROUNDED ON PT. PT SUBDUED AFTER VISIT. MEDICATED WITH ROXANOL X2 FOR SHORTNESS OF BREATH. PT EXPRESSED IMPROVEMENT WITH ANXIETY R/T SOB. PT RESISTANT TO TAKING ROUTINE MEDICATIONS THAT HE HAS BEEN TAKING ALL WEEK. HE WANTS TO CONTROL THE MEDICATION DELIVERY PROCESS. CONTINUE POT.
--- NOTE | 2019-12-27 05:23 | NUR ---
END OF SHIFT SUMMARY NO ACUTE CHANGES THIS SHIFT. VSS. REMAINS ON AIRVO SETTINGS 50L TO 50%. ANXIETY CONTROL REMAINS DIMAS TO CONTROLLING HYPERVENTILATION AND DESATURATION, ROXANOL EFFECTIVE FOR THIS. HAVE HAD MANY TALKS REGARDING SELTH SOOTHING, MUSIC, SELF RELAXATION, ETC. PT REMAINS IN RECLINER FOR MAJORITY OF SHIFT. ANXIETY PRESENTS LESS THAN WHAT IT HAS BEEN THE LAST 3 SHIFTS. WILL CONTINUE TO MONITOR UNTIL SHIFT CHANGE.
--- NOTE | 2019-12-27 17:11 | NUR ---
SHIFT SUMMARY PT ALERT AND ORIENTED. PT ANXIOUS THROUGHOUT SHIFT. VS STABLE. AIRVO TITRATED DOWN THIS SHIFT WITH FI02 OF 45% AND 55L. SATS HAVE REMAINED ABOVE 90%. HR NSR. PT DENIES ANY PAIN. PT RECEIVING ROXANOL FOR AIR HUNGER NEEDED. PT UP IN RECLINER ALL OF SHIFT. WILL CONTINUE TO MONITOR AND REPORT TO ONCOMING RN. CALL LIGHT IN REACH.
--- NOTE | 2019-12-27 19:58 | NUR ---
Called to meet with patient due to worsening anexiety. Pt terfull and stating he wanted to end it all. Wated us to give him something to put him out of his misery. Directed pt towars assesmnet of symptoms. He denies headache or visual disturbance no ringing in his ears. He has a stuffy nose and throat is suzi some trouble swallowing but not to much. His chest is sore and he feels short of breath but mostly tired of so much movemnt of his chest and burden of pulling air in and out. no nause but abdomen is some. his back and legs ache from sittin in chair but mostly hsi hisp hurt terribly. Review of symptoms with nursing updated hospitalist had nursing contact pulmonolgist for possibel alternat planof care such as intubation or comfort measures only. Pt may not qulify for hospice but if unable to walk or come off airvo may qualify. Had discussion of strategies with pt of considering intubation if he needs it. Got his rosxinol increased silightly. We reviewed lack of sleep and fatigue. Suggested he keep up with the roxinol and try to sleep. Suggested face time with friends and his children and diversion suggested Ptsd apps or online groups. Proposed he has to pariciapte in his care. Will reevaluate in AM and see if symptom control is helping.
--- NOTE | 2019-12-28 05:01 | NUR ---
SHIFT SUMMARY PT SLEEPING IN ROOM COMFORTBLY AT THIS TIME. PT HAS BEEN VERY ANXIOUS T/O NIGHT, SHIFT BOSS LIGHT MULITPLE TIMES IN AN HOUR. PT CALLING STAFF TO ROOM TO BE WITH HIM AND TALK WITH HIM. MULTIPLE STAFF TO ROOM AT DIFFERENT TIMES TO ENGAGE IN THERPUTIC COMMUNICATION W/ PT. PT EXPRESSING ANXIETY W/ SOB AND BEING ALONE. PT REMINDED THAT HE WAS OFFERED TRAZADONE BY DR SALGUERO EARLIER IN DAY BUT REFUSED D/T DRY MOUTH ISSUES. PT CONTINUED TO EXPRESS NEED FOR MEDS TO RELAX AND MAKE IT EASIER TO BREATHE. PT WAS MEDICATED SEVERAL TIMES WITH ROXANOL FOR AIR HUNGER AND PAIN. RESP WHILE SLEEPING EVEN UNLABORED ON AIRVO AT 55L AND 45% FiO2 W/ SATS >95%. WHEN AWAKE PT HYPERVENTILATES AND SATS DECREASE TO 85-90%. PT EXPRESSED DESIRE TO GO ON COMFORT CARE EARLIER IN SHIFT. PT REMINDED HE HAD LONG DISUCSSION W/ PALIATIVE CARE ABOUT THE TOPIC AND THE DECISION WAS MADE TO HOLD OFF AT THIS TIME. PT AGREED TO TRY SLEEP AIR THIS EVENING AND REAPPROACH THE TOPIC IN THE AM WITH HOSPITALIST. PT NOW SLEEPING SOUNLDY W/ SATS >95% ON 55L. CALL LIGHT IN REACH.
--- NOTE | 2019-12-28 09:07 | NUR ---
JANET GARLAND WAS TO ROOM TO MEDICATE PT WITH ROXINOL HE WAS DIRECTOR INTERNAL CONTROL LIGHT REQUESTINGIT, ONCE SHE ARRIVED TO ROOM PT REFUSED,THIS RN WASTED ROXINOL WITH JANET RN. THIS RN ARRIVED TO ROOM MOMENTS LATER TO MEDICATE PT WITH MORNING MEDICATIONS PT WAS DIRECTOR INTERNAL CONTROL LIGHT THIS RN ENTERS ROOM. PT IS SCREAMING "HELP ME" OUT THE DOOR THIS RN WALKS IN PT STS "NO ONE HAS GAVE ME ANYTHING AND I NEED HELP" PT IS EDUCATED THAT THIS RN IS AWARE THAT STRIKE PLATE ATTACHER JUST LEFT THE ROOM FROM ATTEMPTING TO MEDICATE HIM PT STS "WELL I THINK I BETTER HAVE IT NOW" PT IS MEDICATED WITH ROXINOL AND MORNING MEDICATIONS. DR MCGEE WAS IN TO SEE PT, PT AGAIN STS DOES NOT UNDERSTAND COMFORT CARE BUT STS "I NEED SOMETHING TO STOP THE SUFFERING" DR MCGEE GIVES EXTENSIVE EDUCATION
--- NOTE | 2019-12-28 11:40 | NUR ---
Pt resting in recliner chair upon arrival. Listened as Pt states his understanding of not physically being ready for comfort measures. Pt reports tolerating the high flow oxygen. Pt appears a little more relaxed this visit with skin color appearing improved. Discussed ideas for distraction when he finds himself focusing on his anxiety. Pt expresses appreciation of visit and reports no other concerns at this time. Palliative Care will remain available for therapeutic visits.
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
--- NOTE | 2019-12-28 17:46 | NUR ---
SHIFT NOTE PT HAS BEEN UP IN BEDSIDE CHAIR T/O THE DAY. PT BEGAN SHIFT VERY ANXIOUS AND AGITATED. PT HAS BEEN SEEN TODAY BY DR MCGEE, PULMONOLOGY, DR SALGUERO AND PALATATIVE CARE TODAY. ALL OF WHICH AGREE THAT PT IS NOT APPROPRIATE FOR COMOFRT CARE, PT IS EDUCATED IN DEPT ABOUT COMFORT CARE PT STS "WELL THEN TREAT THE SYMPTOMS OF MY SUFFERING" BUT REPORTS SIDE EFFECTS TO EACH MEDCIATION THAT IS TRIED FOR ANXIETY, AND HAS APPEARED TO HAVE REPORTED DIFFERENT SIDE EFFECTS FOR SAME MEDICATION TO EACH PROVIDER. PT WAS STARTED ON VISTARIL FOR ANXIETY WHICH PT HAS NOT REPORTED SIDE EFFFECTS FROM AT THE END OF THIS SHIFT. PT APPEARS TO BE RESTING WELL AFTER MEDICATION ADMIN.
--- NOTE | 2019-12-28 20:30 | NUR ---
Assumed Care Pt sitting in recliner, anxious upon initial assessment, breathing at 30 bpm, on oxymizer at 12LPM. RT at bedside attempting to calm pt down with deep breathing exercises. Pt responding well to instruction. Pt able to calm self and maintain bpm in 20-25 range. See shift assessment for detailed assessment. Pt takes pills whole with water, slow, one at a time. Pt is alert and oriented and able to make needs known. Will continue to monitor.
--- NOTE | 2019-12-29 00:58 | NUR ---
UPDATE Pt calm and cooperative this shift. Pt requested next dose of vertaril and administered per orders and pt's prn request. Pt is resting comfortably, addressing staff appropriately. No changes in oxygen requirements at this time. Pt using call light appropriately and with no acute concerns at this time. will continue to monitor.
--- NOTE | 2019-12-29 06:29 | NUR ---
Shift Summary Pt with no acute events overnight. Anxiety mangaed with current medications on emar. Pt able to sleep throughout majority of shift. VSS. Pt remains between 10-12LPM on oxymizer. No events on tele. Pt calm and cooperative with care. Medications given PO, tolerated with water. Pt has remained in recliner throughout entire shift. Uses urinal at bedside to void. No concerns to note overnight. overall, pt stable overnight. Will continue to monitor
--- NOTE | 2019-12-29 09:27 | NUR ---
Pt resting in recliner chair upon arrival. Pt states he is feeling better and his anxiety is managed with new regimen. Pt expresses concerns regarding being transfered to medical floor due to nurse to Pt ratio. Discussed ideas to help offset any anxiety that may occur if transfered to medical floor. Pt reports no other concerns. Spoke with Bedside RN Melanie prior to Pt visit. Melanie reports Pt is showing improvement. Palliative Care will remain available.
--- NOTE | 2019-12-29 13:10 | NUR ---
Patient tells me that he has had a set back and is not doing well today. Patient talks about how lonely he gets and about how surprised he is that he is alive today. I ask patient what has happened and he explains that he got up to use the bathroom and his sats dropped dangerously low and he did not think he was going to make it. I try to redirect patient to see how beautiful it is that he is alive and not to shrink back from continuing to work to get well. Patient asked me to play guitar outside his room again and when I stated that I did not have time for that today, he thanked me for coming. I still prayed for him on my way out. I will continue to remain available to patient and family.
--- NOTE | 2019-12-29 16:43 | NUR ---
Received call from Pt's bedside GINA Navarro reporting Pt has questions regarding his code status. Pt sitting in recliner chair upon arrival. Engaged in therapeutic discussion regarding goals of care including code status. Offered therapeutic listening and answered questions. Educated on life sustaining measures including risk factors and implications with V/U made by Pt. Pt states he would like to remain a DNR. Pt is agreeable to completing POLST. Educated on each section to complete. Pt completes POLST chossing DNR and Limited Treatment. Dicussed the importance of considering completing an Advanced Directive and appointing a healthcare client care representative. Educated Pt on each section to complete. Pt will complete AD once home. No other concerns reported at this time. Spoke with Bedside GINA Navarro and discussed case. Palliative Care will remain available.
--- NOTE | 2019-12-29 16:48 | NUR ---
SHIFT NOTE PT HAS REPORTED DECREASE IN ANXIETY AND INCREASE IN OPTIMISM TO DR MCGEE, PALLIATIVE CARE AND DR SALGUERO. SPIRTUAL CARE WAS IN TO SEE PT AND PT REPORTS WORSENING DEPSRESION AND HOPELESSNESS. PT REPORTED TO DR SALGUERO THAT HE NO LONGER WISHED TO BE A DNR, CLEMENTE FROM PALLIATIVE CARE CALLED TO ROM TO DISCUSS CODE STATUS PT REPORTS THAT DR SALGUERO CHANGED HIS STATUS TO A FULL CODE BY MARKING THE THE ATTEMPT CPR BOX ON POLST, WHICH THERE IS NO ESTABLISHED PROOF OF THIS ON PT'S POLST. PT WITH INTERMITTENT ANXIETY, REQUETS VISTARIL AT TOO EARLY OF TIMES WHICH HE IS EDUCATED ABOUT. PT DOES APPEAR LESS ANXIOUS TODAY THAN YESTERDAY, AND APEPARS TO HAVE LESS ISSUES BREATHING. DOES CONTINUE TO GET SOB WITH AMBULATION.
--- NOTE | 2019-12-29 22:01 | NUR ---
Assumed Care Pt with no acute concerns to note at start of shift. Pt is calm and cooperative with care, expressing appreciation for PCU staff and respiratory therapy. VSS. Breathing even and unlabored on oxymizer 12L at this time. Will attempt to titrate down as tolerated per orders. Pt with increased anxiety with conversation regarding prognosis. Therapeutic communication and listening provided. Pt takes all medications whole with water, one at a time. No desaturation noted with PO intake but pt becomes mildly anxious and tachypneic. Pt recovers independantly and quickly. No acute concerns to note. Will continue to monitor.
--- NOTE | 2019-12-30 05:24 | NUR ---
Shift Summary No acute events to note overnight. Pt remains calm and cooperative, moments of anxiety relieved with therapeutic communication and deep breathing exercises. Pt maintaining saturations of 95% on 10L oxymizer. Pt denies SOB or difficulty breathing at rest, when pt attempts to reposition self in chair, he often becomes dyspneic and tachypniec and saturations drop into the 80's which new panic for the pt. VSS all night, pt remains alert and oriented, able to express needs and uses call light appropriately. no acute changes from initial shift assessment. Will continue to montior until day RN assumes care.
--- NOTE | 2019-12-30 07:33 | NUR ---
"LOAD OUT WORKER | ASSUMED CARE Report from Shaina FUENTES. Patient sitting in room, no signs of distress. Requests decaf coffee. Glasses on. Call light within reach. Denies further needs at this time."
--- NOTE | 2019-12-30 10:39 | NUR ---
"DEAN OF INSTRUCTION | UPDATE DR. MCGEE SAW PATIENT, DISCUSSED PLANS OF POTENTIALLY GOING TO REHAB FACILITY IN [place], ANSWERED PATIENT QUESTIONS, AND SPOKE ABOUT PLANS OVER THE NEXT FEW DAYS (TITRATING DOWN O2, AND GETTING UP TO WALK). THIS RN SPOKE WITH REGARDING LABS. HE STATED THAT HE WOULD ORDER SOME NEW LABS SOON. SPOKE WITH PATIENT REGARDING CONCERN ABOUT PREDNISONE (HE STATES IT MAKES HIM FEEL ANXIOUS). STATED THAT WHEN THE PULMONOLGIST ROUNDS, WE WILL TALK WITH HER ABOUT PLAN FOR D/C'ING PREDNISONE. PHYSICAL THERAPY WORKED WITH PATIENT, UP TO EDGE OF CHAIR WITH SOME MUSCLE ENGAGEMENT, NO STANDING PER P/T REPORT. PATIENT IS HIGHLY ANXIOUS RIGHT NOW, MEDS GIVEN PER ORDERS. WILL CONTINUE TO MONITOR. CALL LIGHT WITHIN REACH."
--- NOTE | 2019-12-30 14:00 | NUR ---
ASSUMED CARE: RECIEVED REPORT FROM GINA GONZALES. GINA CERVANTES. STILL ORIENTING WITH PT AND AT BEDSIDE. NO ACUTE NEEDS AT THIS TIME.
--- NOTE | 2019-12-30 14:14 | NUR ---
Therapeutic Visit Pt sitting in recliner chair upon arrival. Offered therapeutic listening as Pt reports hopefullness. Pt reports doing better with standing and praises his bedside RN for the care and help in relaxing through the standing process. Continued therapeutic listening. Pt reports his preference if SNF being recommended to remain local. No other concerns reported at this time. Spoke with Bedside RN Tara and discussed case. Spoke with Alverto Tafoya and discussed case. Palliative Care will remain available for therapeutic visits.
--- NOTE | 2019-12-30 14:21 | NUR ---
Late Entry from previous visit. Obtained copies of signed POLST. Tubed copy to medical records and returned original POLST and 2 copies to Pt. Palliative Care will remain available.
--- NOTE | 2019-12-30 15:00 | NUR ---
"VACCINATOR | PATIENT UPDATE PATIENT SITTING IN CHAIR. CURRENTLY NOT IN DISTRESS. THIS RN HANDED PATIENT GUITAR TO PLAY WHICH VISIBLY SOOTHED AND COMFORTED HIM. EAR PROBE IN PLACE FOR CONTINOUS PULSE OX. PATIENT USES PHONE TO WATCH VIDEOS AND FOR ENTERTAINMENT. NO ISSUES, CALL LIGHT WITHIN REACH. O2 STILL AT 11 L HIGH FLOW."
--- NOTE | 2019-12-30 18:10 | NUR ---
CASH MANAGER | SHIFT SUMMARY PATIENT REMAINS AT 11 L HIGH-FLOW. HE STATES THAT HE FEELS "READY TO GET UP AND DO THE WORK THAT'S NEEDED" IN ORDER TO GET BETTER. THIS IS A BETTER OUTLOOK THAN THE PATIENT HAS HAD THE PAST FEW DAYS ACCORDING TO NOTES IN THE CHART. VSS. A/O. CALLS APPROPIATELY. DENIES FURTHER NEEDS AT THIS TIME. CALL LIGHT WITHIN REACH, WILL CONTINUE TO MONITOR UNTIL HANDOFF TO NOC RN.
--- NOTE | 2019-12-30 21:53 | NUR ---
Assumed Care Pt tearful at first encounter this shift. Expressing distress related to "events of today". When asked to elaborate, pt explained "I got scared by some noises recently, it caused me to panic". Pt reassured by this RN. All VSS, breathing even and unlabored on 11L oxymizer. Desaturates with small movements, becomes easily winded. Pt complaining of cough, provider called and orders recieved. No acute concerns to note this shift. See shift assessment for detailed systems assessment.
--- NOTE | 2019-12-31 06:14 | NUR ---
Shift Summary No acute events overnight. Pt decided he would like to move from recliner to bed at approx 0200; tolerated transfer well. Pt currently resting in bed, head of bed elevated to approx 45 degrees to comfort. Pt with moderate anxiety at times - medication of vestiril effected per pt. VSS. No acute concern to note. No changes from initial assessment or previous notes. Will continue to montior.
--- NOTE | 2019-12-31 07:33 | NUR ---
ASSUMED CARE: PT RESTING IN BED AT THIS TIME. 13L HIGH FLOW NC IN PLACE. NO ACUTE NEEDS OR CONCERNS AT THIS TIME.
--- NOTE | 2019-12-31 18:02 | NUR ---
ASSUMED CARE: PT SAT UPRIGHT IN RECLINER MOST OF THE SHIFT. TITRATED TO 9L HI FLOW NC. WORKED WITH PHYSICAL THERAPY THIS SHIFT. PT ANXIOUS AT TIMES BUT HAS DONE WELL WITH SCHEDULED VISIRIL. DENIES NEEDS OR CONCERNS.
--- NOTE | 2019-12-31 19:30 | NUR ---
ASSUMED CARE NOTE: ASSUMED CARE OF PT AT 1900, RECEVIED REPORT FROM GINA ALCANTARA. PT IS ALERT AND ORIENTEDX3. PT IS ON 9L OF O2 VIA HIGH-FLOW NC, SPO2 AT 93%, PT STATES HE CAN BE SOB AT TIMES WITH MOVEMENT. PT IS IN NSR WITH HR IN THE 70'S, PT DENIES ANY CP AT THIS TIME. NO REDNESS, OR DRAINAGE NOTED TO SURGICAL INSICIONS ON ABDOMEN. PT STATES HIS LOWER ABDOMEN IS TENDER. BOWEL TONES HEARD IN ALL FOUR QUADRANTS. PT STATES HE WISHES TO STAY IN THE RECLINER A NIGHT TO SLEEP. PT IS ABLE TO REPOSITION SELF IN CHAIR. WILL CONTINUE TO MONITOR PT T/O SHIFT.
--- NOTE | 2019-12-31 23:36 | NUR ---
PT ANXIOUS, AND BECOMING SOB. PT SATURATIONS DECREASED INTO THE MID 80'S, OXYGEN WAS INCREASED TO 14L OF 02 VIA HIGH-FLOW CANNULA
--- NOTE | 2020-01-01 04:59 | NUR ---
SHIFT SUMMARY: PT C/O BACK/RIB PAIN THIS SHIFT DUE TO COUGHING, PAIN MEDS GIVEN PER EMAR. PT WAS NOT ABLE TO GET ENOUGH SLEEP, DUE TO INCREASED SOB. PT IS NOW ON 12L OF 02 VIA HIGH-FLOW NC, WITH SPO2 ABOVE 90% PT REPORTED THAT AMBIEN DID NOT HELP WITH SLEEP. PT CONTINUES TO BE IN CHAIR, PT ADJUSTED IN CHAIR NEEDED, PT REFUSES TO SLEEP IN BED. PT REPORTS THAT HIS ANXIETY IS NOT CONTROLLED AND THAT HE FEARS HE WILL NOT GET ENOUGH AIR. WILL CONTINUE TO MONITOR PT UNTIL REPORT IS GIVEN TO ONCOMING SHIFT.
--- NOTE | 2020-01-01 07:10 | NUR ---
ASSUMED CARE: PT RESTING IN RECLINER. GEOSCIENCES FACULTY MEMBER AT BEDSIDE. NO FURTHER CONCERNS NOTED AT THIS TIME.
--- NOTE | 2020-01-01 08:55 | NUR ---
DR CAPONE IN TO SEE PT, DISCUSSED PLAN OF CARE. PT TITRATED TO 7LNC. SATTING MID 90S. ASKED DR CAPONE ABOUT ANTICOAGULANTS DUE TO SMALL PE ON IMAGING. DR STATES HEPARIN OK FOR NOW AND MAY WRITE FOR ORAL PRIOR TO DC. PT ANXIOUS, MEDICATED PER ORDERS.
--- NOTE | 2020-01-01 12:00 | NUR ---
HEMODIALYSIS LAB TECHNICIAN REPORTS THAT PT DESATTED INTO 70S WITH ACTIVITY TO BSC. TITRATED O2 BACK TO 9L HIGH FLOW NC.
--- NOTE | 2020-01-01 13:35 | NUR ---
PT CALLED NURSE TO ROOM DUE TO FEELING ANXIOUS AND WONDERED WHAT COULD BE DONE ABOUT HIS STEROID DOSE BECAUSE IT IS MAKING HIM FEEL TOO ANXIOUS. EXPLAINED TO PT HOW STEROID TITRATION WORKS AND WHY. SUGGESTED IDEAS FOR DISTRACTION. PT REQUESTED HIS GUITAR WHICH WAS PROVIDED TO HIM. STRUCTURAL DRAFTSMAN AT BEDSIDE AT THIS TIME. NO FURTHER NEEDS OR CONCERNS.
--- NOTE | 2020-01-01 15:00 | NUR ---
PT CALLED NURSE TO ROOM STATING THAT HE THINKS HE IS DEHYDRATED. ASKED PT WHY HE FELT DEHYDRATED AND HE SAID THAT HIS FINGERS WERE CRAMPING. WATCHED PT'S HAND MOTIONS AND HAVE ONLY NOTED PURPOSEFUL MOVEMENTS. ENCOURAGED HYDRATION TO PT AND MADE A SMOOTHIE FOR HIM. DISCUSSED WITH PHYSICIAN CHIEF OF PATHOLOGY
--- NOTE | 2020-01-01 18:01 | NUR ---
SHIFT SUMMARY: PT CONTINUES TO BE ANXIOUS AND REQUIRES CONVERSATIONS FOR ANXIETY. PT CURRENTLY AT 7L NC FOR DESATTING WHILE EATING. SITTING UPRIGHT IN RECLINER WITH PLAN TO TRANSFER TOMORROW IF ABLE TO CONTINUE TO TITRATE O2. NO FURTHER NEEDS OR CONCERNS AT THIS TIME.
--- NOTE | 2020-01-01 21:17 | NUR ---
Assumed Care Pt with moderate anxiety at start of shift. pt states "I feel like i'm getting poisened" when asked to elaborate pt continues "I just feel congested and tired". nasal spray given to pt to help with congestion per orders. Overall, VSS, alert and oriented, able to express needs with call light, educated on appropriate use of call light. See shift assessment for detailed assessment.
--- NOTE | 2020-01-01 23:37 | NUR ---
Mid-shift update Pt with one event of desaturations down to 79%. pt with increased anxiety, encouraged slow deep breathes. pt compliant. able to improve saturation with titration up to 14 LPM over 10 minutes. Pt currently titrated back to 9LPM with saturtion at 89%. Will continue to monitor and titrate as pt tolerates.
--- NOTE | 2020-01-02 06:22 | NUR ---
Shift Summary Pt with moderate anxiety throughout shift requiring frequent titration of oxygen to accomidate hyperventilation/anxiety/coughing episodes. During episodes, pt desaturates quickly from 90% on 5-7L HFNC to 80% on up to 14 LMP. It takes pt approx 10 minutes to recove from events. this is not new for this pt. Pt improving on ability to self soothe. Pt takes all pills whole with water, slow. Pt can desaturate with PO intake, as well. Overall, no acute concerns. Pt able to sleep approx 4 hrs with current anxiety medication and one dose of roxicodone per orders for back pain. Will continue to [facility].
[2020-01-02 13:26] LABS: BASOPHILS ABSOLUTE AUTO 0.08 K/mm3 (0.00-0.23); BASOPHILS PERCENT AUTO 1 % (0-2); EOSINOPHILS ABSOLUTE AUTO 0.59 K/mm3 (0.00-0.68); EOSINOPHILS PERCENT AUTO 3 % (0-6); Hematocrit 37.5 % (37.0-53.0); IMMATURE GRAN ABSOLUTE AUTO 0.13 K/mm3 (0.00-0.10); IMMATURE GRAN PERCENT AUTO 1 % (0-1); LYMPHOCYTES ABSOLUTE AUTO 2.36 K/mm3 (0.84-5.20); LYMPHOCYTES PERCENT AUTO 14 % (21-46); MONOCYTES ABSOLUTE AUTO 1.59 K/mm3 (0.16-1.47); MONOCYTES PERCENT AUTO 9 % (4-13); Mean Corpuscular HGB 29.7 pg (26.0-34.0); Mean Corpuscular Volume 93 fL (80-100); Mean Platelet Volume 10.7 fL (9.1-12.4); NEUTROPHILS ABSOLUTE AUTO 12.75 K/mm3 (1.96-9.15); NEUTROPHILS PERCENT AUTO 73 % (41-73); Platelet Count 379 K/mm3 (150-400); RDW Coefficient Variation 13.6 % (11.7-14.2); RDW Standard Deviation 46.3 fL (35.1-46.3); Red Blood Cell Count 4.04 M/mm3 (4.30-5.90)
[2020-01-02 13:42] LABS: Anion Gap 6 mmol/L (6-16); Blood Urea Nitrogen 23 mg/dL (8-24); Bun/Creatinine Ratio 26.5 (12.0-20.0); CO2, Blood 27 mmol/L (21-32); Calcium, Blood 9.1 mg/dL (8.5-10.1); Chloride, Blood 101 mmol/L (98-108); Creatinine, Blood 0.87 mg/dL (0.60-1.20); Glomerular Filtration Rate >60 (60-); Glucose, Blood 131 mg/dL (70-99); Potassium, Blood 3.6 mmol/L (3.5-5.5); Sodium, Blood 134 mmol/L (136-145)
--- NOTE | 2020-01-02 16:18 | NUR ---
Spiritual care visit conducted. Patient continues to share personal struggles and concerns. Patient did say that going to a rehabilitation facility would be helpful. I listen empathically, help patient set up a Bible haseeb that can read scriptures for him, and a meditation haseeb to help calm him and I provide pastoral certified alcohol counselor and prayer. Patient responds well and voices appreciation for the visit. I will continue to remain available to patient and family.
--- NOTE | 2020-01-02 17:02 | NUR ---
SHIFT SUMMARY PT ALERT AND ORIENTED. PT ANXIOUS MOST OF SHIFT. TELEMETRY WAS DISCONTINUED TODAY, BUT HR WAS NSR. BP STABLE. O2 SATS REMAIN ABOVE 90% ON 5L NC AT THIS TIME, BUT TITRATED UP TO 7 NEEDED FOR EXERTION. WHEN PT IS ANXIOUS HE TENDS TO HYPERVENTILATE AND THEN DESATURATES. PT ENCOURAGED TO MEDITATE IN ROOM HE STATES THIS IS HOW HE DEALS WITH ANXIETY THE BEST. PT DENIES ANY PAIN. WILL CONTINUE TO MONITOR AND REPORT TO ONCOMING RN. CALL LIGHT IN REACH.
--- NOTE | 2020-01-02 21:40 | NUR ---
Assumed Care Pt reclined in chair at time of arrival, oxygen saturations at 92% on 6L HF humidified NC. VSS, alert and oriented, moderately anxious and stating "today was the worst day of my life". when asked to elaborate, pt states "it doesn't matter". This RN offered pt time to listen and used therapeutic communication. Pt takes all medications whole with water, slow, one at a time. No desaturation noted with PO intake at this time. Pt with desaturation noted with movement in chair and coughing spells. Pt made aware of transfer to room 313 and pt states "you can't move me". This RN offered education to pt on why tranfer is necessary, pt compliant with move. Pt with flat affect, stating he's "frustrated". No acute concerns to note at this time, see shift assessment for detailed assessment. Report given to GINA Joseph on medical. Pt to tranfer to room 313.
--- NOTE | 2020-01-02 22:30 | NUR ---
Pt transported to [place] [id number] with all pt belongs with him. Pt was monitored by lay health advocate and STEAM DISTRIBUTION SUPERVISOR during transport. During tranfer, pt required 6-10L NC; oxygen saturation and HR monitored during entire transfer. RT aware of transfer. Medical RN assumes care at this time.
--- NOTE | 2020-01-02 22:32 | NUR ---
RECEIVED 64 YR OLD MALE TRANSFER FROM PCU WITH PREVIOUS HX OF PANCREATITIS AND LAP ANABELA, HAVING SPENT ABOUT A MONTH IN THE HOSPITAL. CURRENTLY RESP ISSUES - POSSIBLE DC TO RESP REHAB '[facility]' IN [place] IN THE NEXT FEW DAYS. POWER GLIDE IN RIGHT ARM. NO TELE. A/O X 4 WITH ANXIETY ISSUES. O2 AT 4-7L/MIN PER NC. HAS BLISTER ON COCCYX WITH MEPILEX DRESSING FOR PROTECTION. ASSSISTED TO RECLINER (SLEEPS IN RECLINER). CALL LIGHT IN REACH. RT NOTIFIED RE PT WANTING RESP TX.
--- NOTE | 2020-01-03 00:32 | NUR ---
Pt c/o left "lung" chest pain. VS taken: T 98.5 f; hr 95; BP 113/72. O2 sats 95% on 7L/NC. Other than his complaint, did not appear in acute distress. Previous PCU nurse reported Hx of anxiety, even when he turned himself he became anxious. Call placed to air control/anti air warfare officer - [facility]. call light in reach.
--- NOTE | 2020-01-03 05:02 | NUR ---
64 YR OLD MALE WAS TRANSFERRED TO FLOOR FROM PCU LAST EVENING. HAS BEEN QUITE ANXIOUS AT INTERVALS WHILE LAYING IN RECLINER. DESATTED INTO THE 70'S. RT NOTIFIED AND O2 INCREASED TO 10 L/MIN PER NC. ALSO RECEIVED ATIVAN 0.5 MG IV X 1, WHICH HEPLED PT REST. AWAKENED LATER AROUND 0230 AND SAID IT WAS THE MOST SLEEP HES HAD IN THE PAST 3 WEEKS. DURING HIS SLEEP, O2 WAS TITRATED DOWN TO 7L/MIN PER NC. LATER, HE AGAIN BECAME ANXIOUS AND O2 SATS DECREASED INTO THE 70'S. VEWS SCORE WAS 4. TALKED THROUGH HIS ANXIETY, ASSISTED TO BED PER PT REQUEST. HOB ELEVATED. RT NOTIFIED, O2 WAS INCREASED TO 11 L/MIN PER RT INSTRUCTIONS. CURERENTLY 02 SATS 88 TO 90%, WILL CONTINUE TO MONITOR, CHARGE NURSE NOTIFIED.
--- NOTE | 2020-01-03 07:10 | NUR ---
REPORT RECEIVED FROM JANET Rasheed RN. PT TRANSFERRING FROM ROOM 313 TO ROOM 340. PT ARRIVING VIA BED. SETTLED AND ORIENTED TO ROOM, CALL YATES IN REACH. WILL MONITOR.
--- NOTE | 2020-01-03 13:40 | NUR ---
Therapeutic visit this afternoon. Pt resting in bed upon arrival. Offered therapeutic listening. Pt reports feeling some improvement but still having some aprehension regarding his health. Offered suggestions and continued therapeutic listening. Pt requests to speak with careronaldoager regarding his discharge options for SNF. No other concerns reported at this time. Spoke with Caremanager Page and relayed Pt's request. Palliative Care will remain available.
--- NOTE | 2020-01-03 14:29 | NUR ---
ASSUMED CARE ASSUMED CARE OF PATIENT FROM GINA RO. PT RESTING IN BED AT THIS TIME. THIS RN IS IN AGREEMENT WITH PRIOR NURSE, JAYJAY'S ASSESSMENT.
--- NOTE | 2020-01-03 16:57 | NUR ---
SHIFT SUMMARY PT HAS INTERMITTEN ANXIETY. PT CURRENTLY SATING IN THE 90S ON 6L O2 VIA HIGH FLOW NC. DESATS EASILY WITH ANY EXERTION. FOAM PLACED TO SACRUM FOR COMFORT. NO OTHER CHANGES IN ASSESSMENT AT THIS TIME. VSS. WILL CONTINUE TO MONITOR UNTIL TURNOVER IS COMPLETE.
--- NOTE | 2020-01-04 06:37 | NUR ---
SHIFT SUMMARY- PT. VERY ANXIOUS DURING THE NIGHT WITH SATS IN THE 80'S-LOW 90'S. ON 6L OF HIGH FLOW O2 VIA NC. SCHEDULED/PRN MEDS GIVEN PER EMAR. PT. WAS ABLE TO SLEEP FOR MOST OF THE NIGHT. NO APPARENTS DISTRESS NOTED. NO ACUTE CHANGES TO CONDITON. PLAN FOR PLACEMENT TO SNF IN [place]. CALL LIGHT WITHIN REACH AND SIDE RAILS UP X2. WILL CONT TO MONITOR.
--- NOTE | 2020-01-04 11:16 | NUR ---
Spiritual care visit conducted. Patient tells me about his concerns of being placed a long distance from family for rehab. I remind him that a larger facility can offer more opportunities for socializing, colaborating with people with similar health issues and being involved in spiritual activities. We also discussed some personal breakthroughs that patient has made in his personal life that can lead to catharsis and greater peace. I listen empathically, provide pastoral day camp counselor, recitation of inspiring Bible verses and a calming/therapeutic presence. Patient responds well and shows signs of reduced stress. I will continue to remain available to patient and family.
--- NOTE | 2020-01-04 15:21 | NUR ---
SOCIAL SECURITY CARD THIS RN DELIVERED SOCIAL SECURITY CARD TO PT DAUGHTER, MAAME BURTON AT [facility].
[2020-01-04] MEDS ORDERED: ACET325 PO (17:00)
[2020-01-04] MEDS ORDERED: XARELTO15 MG PO (17:00)
[2020-01-04] MEDS ORDERED: SENNA PLUS 8.61 EACH PO (17:01)
[2020-01-04] MEDS ORDERED: BENZ100A PO (17:01)
[2020-01-04] MEDS ORDERED: HYDHCL25 PO (17:03)
[2020-01-04] MEDS ORDERED: HYDPAM50 PO (17:05)
[2020-01-04] MEDS ORDERED: OMEP20ER PO (17:05)
[2020-01-04] MEDS ORDERED: OXYC5 PO (17:05)
[2020-01-04] MEDS ORDERED: PRED20 PO (17:06)
[2020-01-04] MEDS ORDERED: DEEP SEA44 ML (17:07)
[2020-01-04] MEDS ORDERED: ZOLP10 PO (17:07)
--- NOTE | 2020-01-04 17:47 | NUR ---
SHIFT SUMMARY PT APPEARS ANXIOUS MOST OF DAY. HAS HAD QUESTIONS ABOUT EACH STEP OF DISCHARGE PROCESS AND HAVE PROVIDED DETAILED ANSWERS TO EASE PTS ANXIETY. SATS DROP TO 80'S WITH ANY PHYSICAL ACTIVITY. SAT ON SIDE OF BED WITH P.T. THIS MORNING AND REQUIRED UP TO 8L/M BY HIGH FLOW CANNULA TO MAINTAIN AT 90%. DRESSING CHANGED TO COCCYX TO AID IN COMFORT. ENCOURAGED TO KEEP PROPPED OFF OF COCCYX USING PILLOWS.
--- NOTE | 2020-01-04 19:57 | NUR ---
Patient discharged via medical transportation.
== END 2020-01-04 19:58 | DRG 417 ==
LOC: ER 23:34 → MEDS 12-07 02:17 → ERHOLD 12-07 02:17 → SURS 12-07 02:17 → PCU 12-07 02:17 → SURS 12-07 13:37 → PCU 12-15 02:50 → MEDS 01-02 22:26 → ENPENDDIS 01-04 16:38 → MEDS 01-04 19:58
PROVIDERS: Emergency Medicine; Hospitalist; Internal Medicine; Internal Medicine Critical Care Medicine; Internal Medicine Pulmonary Disease; Nurse Practitioner Acute Care; Pharmacist; Surgery; ADMIT Internal Medicine
PROC: BF141ZZ Fluoroscopy of Gallbladder, Bile Ducts and Pancreatic Ducts using Low Osmolar Contrast (ICD-10-PCS; 2019-12-09)
PROC: 0FT44ZZ Resection of Gallbladder, Percutaneous Endoscopic Approach (ICD-10-PCS; principal; 2019-12-09 11:45)
DX: K85.10 Biliary acute pancreatitis without necrosis or infection (principal); I26.99 Other pulmonary embolism without acute cor pulmonale; J18.9 Pneumonia, unspecified organism; J95.821 Acute postprocedural respiratory failure; K81.0 Acute cholecystitis; F41.9 Anxiety disorder, unspecified; J47.9 Bronchiectasis, uncomplicated; K59.00 Constipation, unspecified; Z66 Do not resuscitate; E83.39 Other disorders of phosphorus metabolism; G47.00 Insomnia, unspecified; F43.10 Post-traumatic stress disorder, unspecified; F32.9 Major depressive disorder, single episode, unspecified; B96.89 Other specified bacterial agents as the cause of diseases classified elsewhere
CPT/HCPCS: 0099U; 36415; 36600; 71045; 71260; 74176; 74300; 76705; 80048; 80053; 80061; 80069; 80202; 81001; 82085; 82550; 82565; 82803; 83520; 83605; 83690; 83735; 83880; 84100; 84145; 85025; 85027; 85610; 85730; 86038; 86200; 86225; 86235; 86256; 86431; 86762; 87070; 87086; 87205; 88304; 93005; 93010; 93306; 93970; 94640; 94660; 94667; 94762; 96361; 96372-59; 96374; 96375; 96376; 97110; 97116; 97163; 97530; 99285-25; A9270; A9270-GY; C1729; C1751; G0480; J0456; J0692; J0696; J1100; J1170; J1644; J1650; J1885; J1940; J2060; J2250; J2405; J2704; J2710; J2930; J3010; J3370; J7030; J7050; J7060; J7120; J7512; Q0163; Q0177; Q9967; U0001

== ENCOUNTER 2020-07-23 18:14 | Emergency (ER) | payer OTHER ==
[~2020-07-23] VITALS: Ht 185.4 cm; Wt 90.7 kg
[~2020-07-23 18:14] MED LIST changes: +ACET325 PO; +BENZ100A PO; +DEEP SEA44 ML; +HYDHCL25 PO; +HYDPAM50 PO; +Norco 5-325 Ta1 EACH PO; +OMEP20ER PO; +ONDA4ODT MM; +OXYC5 PO; +PRED20 PO; +SENNA PLUS 8.61 EACH PO; +TRAZ100 PO; +Ventolin/Prove6.7 GM INH; +XARELTO15 MG PO; +ZOLP10 PO
[2020-07-23 19:26] LABS: BASOPHILS ABSOLUTE AUTO 0.03 K/mm3 (0.00-0.23); BASOPHILS PERCENT AUTO 0 % (0-2); EOSINOPHILS ABSOLUTE AUTO 0.01 K/mm3 (0.00-0.68); EOSINOPHILS PERCENT AUTO 0 % (0-6); Hematocrit 40.7 % (37.0-53.0); Hemoglobin 13.1 g/dL (13.5-17.5); IMMATURE GRAN PERCENT AUTO 2 % (0-1); LYMPHOCYTES ABSOLUTE AUTO 1.98 K/mm3 (0.84-5.20); LYMPHOCYTES PERCENT AUTO 13 % (21-46); MONOCYTES ABSOLUTE AUTO 0.67 K/mm3 (0.16-1.47); MONOCYTES PERCENT AUTO 4 % (4-13); Mean Corpuscular HGB 29.8 pg (26.0-34.0); Mean Corpuscular HGB Conc 32.2 g/dL (31.5-36.5); Mean Corpuscular Volume 93 fL (80-100); Mean Platelet Volume 9.7 fL (9.1-12.4); NEUTROPHILS ABSOLUTE AUTO 12.22 K/mm3 (1.96-9.15); NEUTROPHILS PERCENT AUTO 80 % (41-73); Platelet Count 261 K/mm3 (150-400); RDW Coefficient Variation 14.6 % (11.7-14.2); RDW Standard Deviation 50.3 fL (35.1-46.3); Red Blood Cell Count 4.39 M/mm3 (4.30-5.90); White Blood Cell Count 15.21 K/mm3 (4.00-11.30)
[2020-07-23 19:43] LABS: Alanine Aminotransfer (ALT/SGP 49 U/L (12-78); Albumin, Blood 3.2 g/dL (3.4-5.0); Albumin/Globulin Ratio 0.8 (0.8-1.8); Alk Phos 90 U/L (50-136); Anion Gap 5 mmol/L (6-16); Aspartate Aminotrans (AST/SGOT 25 U/L (12-37); Bilirubin, Total 0.2 mg/dL (0.1-1.0); Blood Urea Nitrogen 27 mg/dL (8-24); Bun/Creatinine Ratio 29.5 (12.0-20.0); CO2, Blood 28 mmol/L (21-32); Calcium, Blood 9.4 mg/dL (8.5-10.1); Chloride, Blood 106 mmol/L (98-108); Creatinine, Blood 0.92 mg/dL (0.60-1.20); Globulin, Blood 3.9 g/dL (2.2-4.0); Glomerular Filtration Rate >60 (60-); Glucose, Blood 116 mg/dL (70-99); Potassium, Blood 4.8 mmol/L (3.5-5.5); Sodium, Blood 139 mmol/L (136-145); Total Protein, Blood 7.1 g/dL (6.4-8.2)
[2020-07-23 22:05] LABS: International Normalized Ratio 0.92; Prothrombin Time Results 9.9 Sec (9.7-11.5)
[2020-07-23 22:06] LABS: Troponin I <0.015 ng/mL (0.000-0.040)
[2020-07-23] MEDS ORDERED: AMOCLA875 PO (23:43)
== END 2020-07-24 01:29 | disposition home or self-care (01) ==
LOC: ER 18:14
PROVIDERS: Emergency Medicine
DX: R04.2 Hemoptysis (principal); J47.9 Bronchiectasis, uncomplicated; R91.8 Other nonspecific abnormal finding of lung field; Z20.828 Contact with and (suspected) exposure to other viral communicable diseases; Z79.01 Long term (current) use of anticoagulants; Z79.52 Long term (current) use of systemic steroids; Z88.8 Allergy status to other drugs, medicaments and biological substances; Z79.899 Other long term (current) drug therapy; Z87.891 Personal history of nicotine dependence
CPT/HCPCS: 36415; 71046; 71260; 80053; 83605; 84484; 85025; 85610; 85730; 93005; 93010; 99284-25; Q9967; U0003

== ENCOUNTER 2020-09-02 07:46 | Emergency (ER) | payer OTHER ==
[~2020-09-02] VITALS: Ht 177.8 cm; Wt 90.7 kg
[~2020-09-02 07:46] MED LIST changes: +AMOCLA875 PO
[2020-09-02] MEDS ORDERED: SULTRISS (08:29)
[2020-09-02] MEDS ORDERED: ESCI10 PO (08:29)
[2020-09-02] MEDS ORDERED: MYCO250 PO (08:29)
[2020-09-02 09:49] LABS: Hematocrit 48.9 % (37.0-53.0); Hemoglobin 15.5 g/dL (13.5-17.5); Mean Corpuscular HGB 30.4 pg (26.0-34.0); Mean Corpuscular HGB Conc 31.7 g/dL (31.5-36.5); Mean Corpuscular Volume 96 fL (80-100); Mean Platelet Volume 10.8 fL (9.1-12.4); Platelet Count 276 K/mm3 (150-400); RDW Coefficient Variation 13.7 % (11.7-14.2); RDW Standard Deviation 48.6 fL (35.1-46.3)
[2020-09-02 09:52] LABS: Alanine Aminotransfer (ALT/SGP 44 U/L (12-78); Albumin, Blood 3.6 g/dL (3.4-5.0); Albumin/Globulin Ratio 0.8 (0.8-1.8); Alk Phos 100 U/L (50-136); Anion Gap 3 mmol/L (6-16); Aspartate Aminotrans (AST/SGOT 24 U/L (12-37); Bilirubin, Total 0.2 mg/dL (0.1-1.0); Blood Urea Nitrogen 25 mg/dL (8-24); Bun/Creatinine Ratio 23.8 (12.0-20.0); CO2, Blood 33 mmol/L (21-32); Calcium, Blood 9.6 mg/dL (8.5-10.1); Chloride, Blood 105 mmol/L (98-108); Creatinine, Blood 1.05 mg/dL (0.60-1.20); Globulin, Blood 4.5 g/dL (2.2-4.0); Glomerular Filtration Rate >60 (60-); Glucose, Blood 83 mg/dL (70-99); Potassium, Blood 3.7 mmol/L (3.5-5.5); Sodium, Blood 141 mmol/L (136-145); Total Protein, Blood 8.1 g/dL (6.4-8.2)
[2020-09-02 10:16] LABS: Influenza A, PCR Negative (NEGATIVE); Influenza B, PCR Negative (NEGATIVE); Resp Syncytial Virus, PCR Negative (NEGATIVE); SARS-Cov-2 (COVID-19) PCR, MMC Negative (NEGATIVE)
[2020-09-02 10:19] LABS: BAND PERCENT MAN 1 % (0-8); BASOPHILS PERCENT MAN 0 % (0-2); EOSINOPHILS ABSOLUTE MAN 0.83 K/mm3 (0.00-0.68); EOSINOPHILS PERCENT MAN 4 % (0-6); LYMPHOCYTES ABSOLUTE MAN 7.73 K/mm3 (0.84-5.20); LYMPHOCYTES PERCENT MAN 37 % (21-46); METAMYELOCYTE ABSOLUTE MAN 0.62 K/mm3 (0.00-0.00); METAMYELOCYTE PERCENT MAN 3 % (0-0); MONOCYTES ABSOLUTE MAN 1.88 K/mm3 (0.16-1.47); MONOCYTES PERCENT MAN 9 % (4-13); NEUTROPHILS ABSOLUTE MAN 9.82 K/mm3 (1.96-9.15); SEG NEUTROPHILS PERCENT MAN 46 % (41-73); TOTAL CELLS COUNTED 100
== END 2020-09-02 11:11 | disposition home or self-care (01) ==
LOC: ER 07:46
PROVIDERS: Emergency Medicine
DX: F41.9 Anxiety disorder, unspecified (principal); J84.10 Pulmonary fibrosis, unspecified; Z20.828 Contact with and (suspected) exposure to other viral communicable diseases; Z88.8 Allergy status to other drugs, medicaments and biological substances; Z79.52 Long term (current) use of systemic steroids; Z79.899 Other long term (current) drug therapy; Z87.891 Personal history of nicotine dependence
CPT/HCPCS: 0241U; 36415; 71045; 80053; 85025; 93005; 93010; 96374; 99284-25; J2930